=== PATIENT | female | born 1985 | race African-American/Black ===

== ENCOUNTER 2017-04-18 20:11 | Emergency (ER) | payer BC, MEDICAID, SELFPAY ==
[2017-04-18] MEDS ORDERED: Ibuprofen 800 MG TAB ONE (21:25)
== END 2017-04-18 21:29 | disposition home or self-care (01) ==
LOC: ERS 20:11
DX: K04.7 Periapical abscess without sinus (principal); F17.200 Nicotine dependence, unspecified, uncomplicated
CPT/HCPCS: 99406

== ENCOUNTER 2017-05-01 11:11 | Emergency (ER) | payer BC, MEDICAID ==
--- NOTE | 2017-05-01 15:21 | RAD ---
TWO VIEWS CHEST: Date: 05-01-17 Provided Clinical History: Cough. FINDINGS: Comparison 08-23-09. Cardiac and mediastinal silhouette is within normal limits. Lungs appear clear. No pleural fluid or p neumothorax apparent. IMPRESSION: No evidence for an acute cardiopulmonary process. POS: [facility]
== END 2017-05-01 15:15 | disposition home or self-care (01) ==
LOC: ERS 11:11
DX: J20.9 Acute bronchitis, unspecified (principal); F17.210 Nicotine dependence, cigarettes, uncomplicated
CPT/HCPCS: 71020; 99406

== ENCOUNTER 2017-07-07 01:29 | Emergency (ER) | payer MEDICAID ==
[2017-07-07] MEDS ORDERED: Ibuprofen 800 MG TAB ONE (01:58)
== END 2017-07-07 02:01 | disposition home or self-care (01) ==
LOC: ERS 01:29
DX: H66.91 Otitis media, unspecified, right ear (principal); F17.210 Nicotine dependence, cigarettes, uncomplicated
CPT/HCPCS: 99282

== ENCOUNTER 2017-07-20 20:39 | Emergency (ER) | payer MEDICAID, SELFPAY ==
[2017-07-20] MEDS ORDERED: Ketorolac Tromethamine 30 MG/ML VIAL ONE (21:20)
[2017-07-20] MEDS ORDERED: Clindamycin 150 MG CAP ONE (21:20)
== END 2017-07-20 21:26 | disposition home or self-care (01) ==
LOC: ERS 20:39
DX: K02.9 Dental caries, unspecified (principal); F17.210 Nicotine dependence, cigarettes, uncomplicated
CPT/HCPCS: 96372; J1885

== ENCOUNTER 2017-10-31 20:40 | Emergency (ER) | payer MEDICAID, SELFPAY ==
[2017-10-31 21:20] LABS: Pregnancy Test - Urine (BHCG) POSITIVE (Negative); Pregu Control Background? CLEAR/WHITE (CLR/WHITE); Pregu Control Bar Appear? YES (CONTROL BAR)
[2017-10-31 21:23] LABS: Bilirubin Negative (Negative); Blood, Urine Small (Negative); Clarity CLOUDY (Clear); Glucose, Urine (Dipstick) Negative (Negative); Leukocyte Negative (Negative); Nitrite Negative (Negative); Protein, Urine (Dipstick) Trace mg/dL (Neg-Trace); Specific Gravity, Urine 1.027 (1.002-1.036); Urobilinogen 0.2 mg/dL (0.2-1.0); pH, Urine 5.5 (5.0-9.0)
[2017-10-31 21:24] LABS: Specific Gravity 1.027 (1.002-1.036); Squamous Epithelial 21-50 HPF (0-3)
[2017-10-31 21:25] LABS: Pathc Cast-AUWi Flag 3.48 (0-2.49)
[2017-10-31 21:32] LABS: Bacteria/HPF 2+ HPF (None Seen)
[2017-10-31 21:33] LABS: Hyaline Casts/LPF NONE SEEN LPF (0-3 Hyaline)
[2017-11-01 22:15] LABS: Chlamydia by PCR Not Detected (NotDetected); GC by PCR Not Detected (NotDetected)
== END 2017-10-31 23:16 | disposition home or self-care (01) ==
LOC: ERS 20:40
DX: O99.611 Diseases of the digestive system complicating pregnancy, first trimester (principal); K59.00 Constipation, unspecified; O99.511 Diseases of the respiratory system complicating pregnancy, first trimester; J45.909 Unspecified asthma, uncomplicated; F17.210 Nicotine dependence, cigarettes, uncomplicated
CPT/HCPCS: 81003; 81015; 81025; 87480; 87491; 87510; 87591; 87660; 99284

== ENCOUNTER 2017-11-27 16:42 | Emergency (ER) | payer MEDICAID | END 2017-11-27 17:44 | disposition left against medical advice (07) | LOC: ERS 16:42 | DX: Z53.21 Procedure and treatment not carried out due to patient leaving prior to being seen by health care provider (principal) ==

== ENCOUNTER 2018-02-19 07:13 | Day surgery (SDC) | payer OTHER ==
[2018-02-19 08:16] VITALS: BP 113/55; TEMP 98.7; BMI 39.9
[2018-02-19] MEDS ORDERED: Acetaminophen 500 MG TAB PO SCH (09:00)
[2018-02-19] MEDS ORDERED: Sodium Chloride 0.9% 1,000 ML IV SCH (10:00)
--- NOTE | 2018-02-19 10:42 | PDOC.FPROB ---
FMR OB H&P: HPI - History of Present Illness Chief Complaint: pelvic cramps Indentification: @ 21.3w EGA by 1st T US History of Present Illness: this is a 32yo at 21.3weeks gestation dated by 1st t US presenting for eval of pelvic cramps. Pt reports last night she began to feel bilateral lower abdominal and pelvic cramping. Onset was a few hours after playing with and lifting her 5 year old daughter. Pain is crampy,8/10, non radiating. Pt fell asleep and woke in the morning the pain persisted but decreased to 4/10. Pt also went to bathroom last night and noticed a light pink color on toilet paper. Pt has never had a similar episode. Denies trauma. Endorses sexual activity 36 hours ago, good mvmt, no discharge or LOF or contractions. Primary Care Physician: Dr. Ferreira FMR OB H&P: Current - Care : 3 Para: 1011 Gestational age: 21.3 Dating Criteria: 1T US Course/Complications: vaginal yeast infection on 01/05/2018, s/p treatment - OB Labs Blood type: A RH: positive Antibody Screen: negative HIV: negative HepBsAg: negative Rubella: immune Gonorrhea: negative Chlamydia: negative FMR OB H&P: History - Past Medical History PMH: Asthma- controlled with inhaled steroid, last albuterol use was weeks ago - OB History OB History: #1: D&C #2: full term F, delivered via C section due to NRFHT - Surgical History Sx History: c section 2014 - Social History Social History: tobacco: 1/2 pack per day etoh: denies drugs: denies - Family History Family History: down syndrome: cousins FMR OB H&P: Medications - Current Home Medications: Medication Instructions Recorded Confirmed Type 21/Iron Fu/Folic Acid 1 tablet PO DAILY 02/19/18 02/19/18 History [ Complete Caplet] metroNIDAZOLE [Flagyl] 500 mg PO Q12HR 7 Days #14 tab 02/19/18 Rx Allergies/Adverse Reactions: Allergies Allergy/AdvReac Type Severity Reaction Status Date / Time No Known Allergies Allergy Unverified 02/19/18 08:17 FMR OB H&P: ROS - Review of Systems General: denies: fever/chills, recent trauma Eyes: denies: eye pain, vision changes ENT: denies: nasal congestion, rhinorrhea Cardiovascular: denies: chest pain, palpitation Respiratory: denies: cough, congestion, shortness of breath Gastrointestinal: reports: abdominal pain (per hpi). denies: nausea, vomiting, bright red blood, dark black tarry stools Genitourinary (Female): denies: incontinence, hematuria, polyuria, vaginal discharge Musculoskeletal: denies: pain, stiffness Neurologic: denies: syncope, seizures Integumentary: denies: rash, lesions Endocrine: denies: cold intolerance, heat intolerance Hematologic/Lymphatic: denies: prolonged or excessive bleeding Psychological: denies: depression, anxiety FMR OB H&P: Vital Signs - Maternal Vital signs: Vital Signs - First Documented Temp Pulse Resp BP Pulse Ox 98.7 F 79 18 113/55 L 100 02/19/18 08:04 02/19/18 08:04 02/19/18 08:04 02/19/18 08:04 02/19/18 08:04 - Heart Tones Baseline: 150 Variability: moderate FMR OB H&P: Physical Exam - Physical Exam General: NAD, awake, alert and oriented HEENT: normocephalic and atraumatic, EOMI, MMM, grossly normal vision Neck: supple Chest: non-tender to palpation Heart: RRR, normal S1/S2 General: CTAB, no respiratory distress Abdomen: gravid, non-tender Musculoskeletal: normal gait and station Skin: no rash, good tugor Lymphatic: no unusual bruising or bleeding, no purpura Psychiatric: intact recent and remote memory, good judgement and insight - Pelvic Exam Vulva: normal hair distribution, no masses, no lesions, no blood Cervix: no masses, no lesions, no blood FMR OB H&P: A/P - Problem List (1) Abdominal pain affecting Status: Acute Code(s): O26.899 - OTH RELATED CONDITIONS, UNSPECIFIED TRIMESTER; R10.9 - UNSPECIFIED ABDOMINAL PAIN Disposition: Abdominal pain secondary to pains of and/or musculoskeletal strain A- Pain is resolving spontaneously and hx is suspicious for normal pains of exacerbated by her activity/play with daughter. Minimal blood on hx. Steril spec showed no lesions vaginally or on cervix as well as no blood whatsoever. Abd US showed single intrauterine , cephalic, with normal FHT and anterior placenta not near cervix. No abnormalities. Possible minimal bleeding likely 2/2 sexual activity. P- VP3, GC&C -1L NS -tylenol -will discharge home and f/u with results. Attending Addendum - Attending Addendum Date/Time: 02/20/18 4600 I personally evaluated the patient and discussed the management with Dr. Weinstein on 02/19/18. I agree with the History, Examination, Assessment and Plan documented above with any addition or exceptions noted below. 32 y.o at 21.3 weeks EGA with lower abd pain and decreased FM. Exam and Labs normal except BV. will treat. UDS pos for Meth. [employer] [place] to abstinence. F/U at [facility]
[2018-02-19 10:43] LABS: Bilirubin Negative (Negative); Blood, Urine Small (Negative); Clarity CLEAR (Clear); Glucose, Urine (Dipstick) Negative (Negative); Leukocyte Negative (Negative); Nitrite Negative (Negative); Protein, Urine (Dipstick) Negative (Neg-Trace); Specific Gravity, Urine 1.011 (1.002-1.036); pH, Urine 7.5 (5.0-9.0)
[2018-02-19 10:45] LABS: Bacteria/HPF None Seen HPF (None Seen); Hyaline Casts/LPF 7-10 HYALINE CAST LPF (0-3 Hyaline); Pathc Cast-AUWi Flag 1.59 (0-2.49); Squamous Epithelial 0-3 HPF (0-3); WBC/HPF 0-3 HPF (0-3)
[2018-02-19 11:04] LABS: Medtox Reader # READER 1; THC/Cannabinoid Screen Not Detected (NotDetected)
[2018-02-19 11:05] LABS: Amphetamine Detected (NotDetected); Barbiturates Screen Not Detected (NotDetected); Benzodiazepine Screen Not Detected (NotDetected); Cocaine Metabolite Screen Not Detected (NotDetected); Medtox Control Line Valid? VALID (VALID); Methadone Not Detected (NotDetected); Methamphetamine Detected (NotDetected); Opiate Screen Not Detected (NotDetected); Oxycodone Screen Not Detected (NotDetected); Phencyclidine (PCP) Not Detected (NotDetected); Tricyclic Screen Not Detected (NotDetected)
[2018-02-20 22:09] LABS: Chlamydia trachomatis by NAA Negative (Negative)
== END 2018-02-19 12:36 | disposition home or self-care (01) ==
LOC: L&D/OP 07:13
PROVIDERS: ATTEND Family Medicine
DX: O26.892 Other specified pregnancy related conditions, second trimester (principal); R10.9 Unspecified abdominal pain; O99.332 Smoking (tobacco) complicating pregnancy, second trimester; F17.200 Nicotine dependence, unspecified, uncomplicated; Z3A.21 21 weeks gestation of pregnancy; Z79.899 Other long term (current) drug therapy
CPT/HCPCS: 76815; 80306; 81003; 81015; 87480; 87491; 87510; 87591; 87660; 96360; 99284

== ENCOUNTER 2018-04-29 22:16 | Day surgery (SDC) | payer OTHER ==
[2018-04-29 23:17] VITALS: BMI 43.6
--- NOTE | 2018-04-29 23:36 | PDOC.FPROB ---
FMR OB H&P: HPI - History of Present Illness Chief Complaint: Swelling in her feet History of Present Illness: This is a 32 yo at 31.2 wks by 1st trimester US who presents to L&D with a cc of swelling in her feet. She states that the swelling started earlier today when she was sitting on the couch. She states that she did not recognize it at first but her pointed it out. She states that her swelling is associated with some pain and pressure. She denies headache, changes in vision, SOB, LOF, vaginal discharge, or pain. She has had no history of Pre-eclampsia or consistently elevated pressures during this . Primary Care Physician: Dr. Ferreira FMR OB H&P: Current - Care : 3 Para: 1011 Gestational age: 31.2 Due date: 06/29/18 Dating Criteria: 1st trimester US - OB Labs Blood type: A RH: positive Antibody Screen: negative HIV: negative RPR: negative HepBsAg: negative Rubella: immune Urine drug screen: positive (Positive for Meth during this ) Gonorrhea: negative Chlamydia: negative GBS: unknown FMR OB H&P: History - Past Medical History PMH: Asthma, well controlled on inhaled steroid and PRN albuterol - OB History OB History: 1: D&C 2: Full term female, delivered via C section due to NRFHT FMR OB H&P: Medications - Current Home Medications: Medication Instructions Recorded Confirmed Type 21/Iron Fu/Folic Acid 1 tablet PO DAILY 02/19/18 02/19/18 History [ Complete Caplet] Albuterol Sulfate HFA (OR) 2 puff IH PRN PRN 04/29/18 04/29/18 History [Proventil Hfa (or)] Albuterol Sulfate [Albuterol 3 ml NEB Q6HR 04/29/18 04/29/18 History Sulfate Neb] Allergies/Adverse Reactions: Allergies Allergy/AdvReac Type Severity Reaction Status Date / Time No Known Allergies Allergy Verified 04/29/18 23:10 FMR OB H&P: ROS - Review of Systems General: denies: fever/chills, weight/appetite/sleep changes, fatigue Eyes: denies: eye pain, vision changes ENT: denies: nasal congestion, rhinorrhea, trouble with swallowing Cardiovascular: denies: chest pain, palpitation Respiratory: denies: cough, congestion, shortness of breath Gastrointestinal: denies: abdominal pain, indigestion Genitourinary (Female): denies: incontinence, dysuria, vaginal discharge, vaginal pain Musculoskeletal: reports: pain (stable low back pain), swelling (bilateral swelling with mild tenderness) Neurologic: denies: numbness, syncope Psychological: denies: depression, anxiety FMR OB H&P: Vital Signs - Maternal Vital signs: BP 119/57, HR 86 - Heart Tones Baseline: 130 Variability: moderate Acceleration: present Deceleration: absent FMR OB H&P: Physical Exam - Physical Exam General: NAD, awake, alert and oriented HEENT: normocephalic and atraumatic, PERRLA, MMM Neck: FROM, trachea midline Chest: non-tender to palpation Heart: RRR, normal S1/S2, no murmurs/rubs/gallops, other (+1 pitting edema to mid miranda bilaterally) General: CTAB, no respiratory distress, no wheezing Abdomen: soft, gravid, bowel sound present Musculoskeletal: normal gait and station, pulses present, FROM in all four extremities FMR OB H&P: A/P - Problem List (1) Third trimester Status: Acute Code(s): Z34.93 - ENCNTR FOR SUPRVSN OF NORMAL PREG, UNSP, THIRD TRIMESTER Disposition: This is a 32 yo at 31.2 wks by 1st trimester US B/L LE swelling -Likely 2/2 inferior vena cava pressure from fetus. Pt has had normal pressures throughout and current bp is 119/57. She has no symptoms of Pre- eclampsia. FHTs baseline 130s, moderate variability, accels present, no decels. Pt was instructed to keep feet elevated and wear compression stockings. Pt was given return precautions. Discussion: Date/Time: 04/29/18 2436 This H&P was discussed with Dr. Ferreira who agree with the above documentation and plan.
== END 2018-04-30 00:28 | disposition home or self-care (01) ==
LOC: ERS 22:16 → L&D/OP 22:37
PROVIDERS: ATTEND Family Medicine
DX: O99.89 Other specified diseases and conditions complicating pregnancy, childbirth and the puerperium (principal); M79.89 Other specified soft tissue disorders; O99.513 Diseases of the respiratory system complicating pregnancy, third trimester; J45.909 Unspecified asthma, uncomplicated; Z3A.31 31 weeks gestation of pregnancy; Z79.899 Other long term (current) drug therapy
CPT/HCPCS: 99282

== ENCOUNTER 2018-05-22 06:21 | Inpatient (IN) | payer OTHER ==
[2018-05-22 06:46] VITALS: BMI 41.1
--- NOTE | 2018-05-22 07:28 | PDOC.FPROB ---
FMR OB H&P: HPI - History of Present Illness Chief Complaint: dizziness and headache Indentification: per PNC charts but per patient History of Present Illness: The patient is a 33YO at 35.5 weeks c/w an 8.5 week sono who was brought to L&D via EMS complaining of sudden onset headache and dizziness that began early this AM. Per the patient, she woke up around 0300 and had to urinate a lot. While getting up and moving around she endorsed some dizziness and an associated 10/10 frontal headache. She cannot describe the pain but reports that it comes and goes and has some associated blurry vision as well. She denies any associated N/V, chest pain, focal weakness, or SOB. She says she feels hot but does not know if she has a fever. She denies any dysuria but does endorse some vaginal pressure during urination. Does not know if she has had dysuria because she has been voiding in the dark. Denies any vaginal discharge or bleeding or contractions. Endorses regular movement. Denies any drug use at all during despite a UDS + for amphetamines in February. States that was due to her living with meth users and she now lives somewhere else. Primary Care Physician: MAXI Ferreira FMR OB H&P: Current - Care : 3 Para: 1011 Gestational age: 35.5 weeks Due date: 06/29/18 Dating Criteria: 8.5 week sono Course/Complications: GDM diagnosed yesterday in clinic and started on glyburide. - OB Labs Blood type: A RH: positive Antibody Screen: negative HIV: negative RPR: negative HepBsAg: negative Rubella: immune Urine drug screen: negative (on 05/13/18) Gonorrhea: negative Chlamydia: negative Pap Smear: NILM in August of 2017 1 hour gtt: 264 GBS: unknown H&H: 10.3/31 on 05/13/18 Platelets: 399 on 05/13/18 Additional labs: Varicella immune w/ IgG of 332 - First Trimester Ultrasound First trimester: live sIUP w/ new PATTI based on sono of 06/29/2018 - Anatomy Survey Anatomy survey: Female fetus w/ no anamolies detected. No cervical funneling or shortening noted. FMR OB H&P: History - Past Medical History PMH: asthma, carpal tunnel syndrome, obesity - OB History OB History: Uncontrolled A2GDM diagnosed on 05/21/18 h/o SAB in 2014 h/o C/S @ 39 weeks in 2012 2/2 failure to progress and nonreassuring FHTs - SURVEY MANAGER History SURVEY MANAGER History: no h/o abnormal pap; NILM in 4 of 2017 - Surgical History Sx History: D&C s/p SAB in 2004 C/S in 2012 - Social History Social History: + for tobacco use and h/o + UDS in February for amphetamines; most recent UDS in clinic on 05/13/18 negative No EtOH use - Family History Family History: non-contributory FMR OB H&P: Medications - Current Home Medications: Medication Instructions Recorded Confirmed Type 21/Iron Fu/Folic Acid 1 tablet PO DAILY 02/19/18 05/22/18 History [ Complete Caplet] Albuterol Sulfate HFA (OR) 2 puff IH PRN PRN 04/29/18 05/22/18 History [Proventil Hfa (or)] Albuterol Sulfate [Albuterol 3 ml NEB Q6HR 04/29/18 05/22/18 History Sulfate Neb] glyBURIDE [Glyburide] 2.5 mg PO BID 05/22/18 05/22/18 History Allergies/Adverse Reactions: Allergies Allergy/AdvReac Type Severity Reaction Status Date / Time No Known Allergies Allergy Verified 04/29/18 23:10 FMR OB H&P: ROS - Review of Systems General: denies: fever/chills Eyes: reports: vision changes, double vision Cardiovascular: denies: chest pain Respiratory: denies: shortness of breath Gastrointestinal: denies: abdominal pain, nausea, vomiting Genitourinary (Female): reports: vaginal pressure. denies: dysuria, vaginal discharge, vaginal pain, vaginal bleeding, contractions Musculoskeletal: denies: decrease range of motion Neurologic: reports: headache. denies: numbness, syncope, weakness Endocrine: reports: polyuria FMR OB H&P: Vital Signs - Maternal Vital signs: BP: 130/75 HR: 100 RR: 18 Temp: 98.7F - Heart Tones Baseline: 160 Variability: moderate [place] contractions every: no contractions seen FMR OB H&P: Physical Exam - Physical Exam General: awake, alert and oriented, other (moderate distress and anxious appearing) HEENT: normocephalic and atraumatic, EOMI, MMM, conjunctiva clear, no scleral icterus Neck: supple Heart: RRR, normal S1/S2, no murmurs/rubs/gallops, other General: CTAB, no respiratory distress, good air movement, no wheezing, no retractions Abdomen: soft, gravid, bowel sound present Musculoskeletal: normal gait and station, pulses present, FROM in all four extremities Neurological: cranial nerves II through XII intact, sensation to pain,touch and proprioception grossly normal, strength +5, no clonus, no tremor, no focal deficit Skin: no rash, good tugor, capillary refill <2 seconds Lymphatic: no unusual bruising or bleeding, no purpura Psychiatric: intact recent and remote memory FMR OB H&P: Results - Labs Lab results: Laboratory Results - last 24 hr 05/22/18 07:05 POC Glucose 310 H FMR OB H&P: A/P - Problem List (1) Headache Current Visit: Yes Status: Acute Code(s): R51 - HEADACHE (2) Dizziness Current Visit: Yes Status: Acute Code(s): R42 - DIZZINESS AND GIDDINESS (3) GDM (gestational diabetes mellitus) Current Visit: Yes Status: Acute Code(s): O24.419 - GESTATIONAL DIABETES MELLITUS IN , UNSP CONTROL Qualifiers: Gestational diabetes mellitus control: oral hypoglycemic-controlled Trimester: third trimester Qualified Code(s): O24.415 - Gestational diabetes mellitus in , controlled by oral hypoglycemic drugs (4) History of section, low transverse Current Visit: Yes Status: Chronic Code(s): Z98.891 - HISTORY OF UTERINE SCAR FROM PREVIOUS SURGERY (5) History of spontaneous , currently Current Visit: Yes Status: Chronic Code(s): O09.299 - SUPRVSN OF PREG W POOR REPRODCTV OR OBSTET HISTORY, UNSP TRI (6) History of dilatation and curettage Current Visit: Yes Status: Chronic Code(s): Z98.890 - OTHER SPECIFIED POSTPROCEDURAL STATES (7) Hyperglycemia during Current Visit: Yes Status: Acute Code(s): O99.810 - ABNORMAL GLUCOSE COMPLICATING (8) History of drug abuse Current Visit: Yes Status: Chronic Code(s): Z87.898 - PERSONAL HISTORY OF OTHER SPECIFIED CONDITIONS (9) Tobacco use Current Visit: Yes Status: Chronic Code(s): Z72.0 - TOBACCO USE (10) Obesity Current Visit: Yes Status: Chronic Code(s): E66.9 - OBESITY, UNSPECIFIED (11) Carpal tunnel syndrome during Current Visit: Yes Status: Chronic Code(s): O26.899 - OTH RELATED CONDITIONS, UNSPECIFIED TRIMESTER; G56.00 - CARPAL TUNNEL SYNDROME, UNSPECIFIED UPPER LIMB (12) tachycardia Current Visit: Yes Status: Acute Code(s): [id number] - Disposition: 33YO at 35.5 weeks who presented to L&D via EMS with a CC of dizziness and a severe headache that began at approximately 0300 today. Headache: - Patient endorses a 10/10 NAGEL that she reports as the worst in her life that started at 0300 today. - BP steadily increasing since arrival with most recent up to 149/75. - CBC, CMP, and Urine protein & creatinine ordered. - Will give 1g PO tylenol and 1L of LR as well. - Will continue to monitor pain and BPs closely and consider a head CT as well if labwork not significant for Pre-e and/or Headache does not improve with conservative measures. GDMA2: - Per patient just diagnosed yesterday and started on glyburide 2.5mg QHS. BG at presentation significantly elevated at 310. - Will give 5 units of insulin now and recheck BG in ~4 hours to see full effect. - Will get a UA as well to r/o any infection in setting of hyperglycemia. - Will keep NPO for now in anticipation of possible need for delivery. tachycardia: - baseline FHR in the 160s since arrival with moderate variability. - Will give mother 1L of LR and 1g of tylenol for her pain and see if this helps improve FHR. - If no improvement will consider possible need for delivery. Will also consider getting a BPP. - OF note, patient has h/o C/S but desired a TOLAC per AWA in records in February. sIUP @ 35.5 weeks: - Aware. - FHTs as described above. - Will continue to monitor closely. Tobacco use: - Will encourage cessation. h/o + UDS for amphetamine: - Aware, repeat UDS pending. asthma: - Aware, will order albuterol PRN. Patient states well-controlled and only uses inhaler and nebulizer PRN. h/o BV in : - Aware, s/p treatment. h/o yeast vaginitis in : - Aware, s/p treatment. Obesity: - Aware, will encourage lifestyle changes. Carpal tunnel syndrome: - Aware, will ensure patient has splints to wear QHS. Dispo: Will admit for close monitoring overnight and in order to get better control of BG levels & possible plan for early delivery pending lab & imaging results. Discussion: Date/Time: 05/22/18727 This H&P was discussed with general internal medicine doctor and I agree with the above HPI/ROS/PE and I ( Leon Stock DO) would like to add further assessment below: 33YO at 35.5wga requiring admission for ANGEL, GDM, Pre-E R/O. 1. Headache: - Unknown cause, but considering Pre-E, SAH, Migraine, Tension ANGEL, dehydration. Will give ANGEL medications/IVF and if no improvement will investigate further. - No focal neuro deficits and will continue to monitor. consider CT scan. - Did have elevated BP suggesting Pre-E and will order lab w/u. Give LR bolus and plan for delivery if indicated. 2. GDMA2: - Diagnosed yesterday and took one dose of Glyburide last night. BG uncontrolled ; will order 5u insulin and continue to monitor. She will likely need to be placed on insulin if discharged. Also suspect infant to be LGA. 3. tachycardia: - baseline FHR in the 160s since arrival with moderate variability. - Will give mother 1L of LR and continue monitoring. consider BPP. 4. sIUP @ 35.5 weeks: - Hx/o C/S x1 but pt desires TOLAC, which may not be recommended if we need to induce labor for Pre-E. - Will continue to monitor closely. 5. Tobacco Use during : - Will encourage cessation. 6. H/o + UDS for amphetamine: - During 1st trimester and denies additional use. Repeat UDS. 7. Asthma: - Albuterol PRN. No acute wheezing or respiratory distress. 8. H/o BV in : - S/p treatment. No acute issues. 9. H/o yeast vaginitis in : - S/p treatment, no acute issues. 10. Obesity: - Medical Affairs Director. Addendum - Attending - Attending Attestation Date/Time: 05/22/18 9980 I personally evaluated the patient and discussed the management with Dr. Castano at time of admission. See separate note. I agree with the History, Examination, Assessment and Plan documented above with any addition or exceptions noted below.
[2018-05-22] MEDS ORDERED: Lactated Ringer's 1,000 ML IV SCH ×2 (07:45→12:00)
[2018-05-22] MEDS ORDERED: Acetaminophen 500 MG TAB PO SCH (07:45)
[2018-05-22 07:56] LABS: #Eosinphils 0.1 thou/uL (0.0-0.7); #Lymphocytes 2.6 thou/uL (1.20-3.40); #Monocytes 0.9 thou/uL (0.11-0.59); #Neutrophils 6.3 thou/uL (1.40-6.50); %Basophils 0.3 % (0.0-1.0); %Eosinophils 1.5 % (0.0-10.0); %Lymphocytes 26.1 % (21.0-51.0); %Monocytes 9.1 % (0.0-10.0); %Neutrophils 63.2 % (42.0-75.0); Hemoglobin 10.5 g/dL (12.0-16.0); Mean Corpuscular HGB CONC 32.9 g/dL (32.0-36.0); Mean Corpuscular Hemoglobin 29.2 pg (27.0-31.0); Mean Corpuscular Volume 88.9 fL (78.0-98.0); Mean Platelet Volume 7.4 fL (7.4-10.4); Platelet Count 316 thou/uL (130-400); RBC Distribution Width 12.2 % (11.5-14.5); Red Blood Cell (RBC) Count 3.58 mill/uL (4.20-5.40)
[2018-05-22] MEDS ORDERED: Insulin Regular 300 UNITS/3 ML VIAL SC SCH (08:00)
[2018-05-22 08:30] LABS: ALT (SGPT) 12 U/L (8-55); AST (SGOT) 14 U/L (5-34); Albumin 3.3 g/dL (3.5-5.0); Alkaline Phosphatase 144 U/L (40-150); Anion Gap 10 mmol/L (10-20); BUN (Urea Nitrogen) 8 mg/dL (7.0-18.7); Bilirubin, Total 0.3 mg/dL (0.2-1.2); Calc. Creatinine Clearance 188 mL/min (70-130); Carbon Dioxide 22 mmol/L (22-29); Chloride 105 mmol/L (98-107); Estimated GFR-MDRD Greater than 90; Globulin 3.6 g/dL (2.4-3.5); Glucose 244 mg/dL (70-105); Potassium 3.9 mmol/L (3.5-5.1); Protein, Total 6.9 g/dL (6.0-8.3); Sodium 133 mmol/L (136-145)
[2018-05-22 08:30] LABS: Bilirubin Negative (Negative); Blood, Urine Small (Negative); Clarity CLEAR (Clear); Glucose, Urine (Dipstick) >=1000 mg/dL (Negative); Leukocyte Negative (Negative); Nitrite Negative (Negative); Protein, Urine (Dipstick) Negative (Neg-Trace); Specific Gravity, Urine 1.016 (1.002-1.036); Urobilinogen 0.2 mg/dL (0.2-1.0)
[2018-05-22 08:35] LABS: Bacteria/HPF Rare-Few HPF (None Seen); Hyaline Casts/LPF 0-3 HYALINE CAST LPF (0-3 Hyaline); Pathc Cast-AUWi Flag 0.29 (0-2.49); Squamous Epithelial 0-3 HPF (0-3); WBC/HPF 0-3 HPF (0-3)
[2018-05-22 08:38] LABS: Urine Culture Reflex No No
[2018-05-22 08:40] LABS: Amphetamine Not Detected (NotDetected); Barbiturates Screen Not Detected (NotDetected); Benzodiazepine Screen Not Detected (NotDetected); Cocaine Metabolite Screen Not Detected (NotDetected); Medtox Control Line Valid? VALID (VALID); Medtox Reader # READER 1; Methadone Not Detected (NotDetected); Methamphetamine Not Detected (NotDetected); Opiate Screen Not Detected (NotDetected); Oxycodone Screen Not Detected (NotDetected); Phencyclidine (PCP) Not Detected (NotDetected); THC/Cannabinoid Screen Not Detected (NotDetected); Tricyclic Screen Not Detected (NotDetected)
--- NOTE | 2018-05-22 09:02 | PDOC.EVN ---
Event Note - Event Note Event Note: Date/Time: 05/22/18 0853 I personally evaluated the patient and discussed the management with Dr. Monroe and Montrell on L&D. Theire written H&P is pending. I agree with the History, Examination, Assessment and Plan as discussed with any addition or exceptions noted below. 1. Patient has a new headache that has a differential dx including tension ANGEL, Preeclampsia, migraine, and Subarachnoid hemorrhage. We are giving fluids, tylnol and arranging a CT scan of the head. 2. She has one elevated BP since arrival, the others are normal. We will be monitoring for repeat episodes of elevated BP that would confirm the diagnosis of preeclampsia with severe features. We are arranging [facility] laboratory workup. 3. GDM. Recently diagnosed. Her blood glucose is over 300. Regular Insulin will be give with glucose checks q 4 hours. 4. 33 yo at 35w5d by 8wk LMP. Complicated by obesity, GDM, amphetamine use. Clinic records requested for further review. 5. tachycardia at in the 160s without deceleration and with moderate variability. We will give IV fluids and insulin and continue to monitor. Will arrange delivery plan depending on response to therapy.
[2018-05-22 09:23] LABS: Creatinine, Urine 41.4 mg/dL (47-110)
[2018-05-22] MEDS ORDERED: Ondansetron PF 4 MG/2 ML Vial IVP PRN (11:23)
[2018-05-22] MEDS ORDERED: Promethazine HCl 25 MG/ML VIAL IM PRN (11:23)
[2018-05-22] MEDS ORDERED: Dextrose 50% Abboject 50 ML SYRINGE SLOW IVP PRN (11:50)
[2018-05-22] MEDS ORDERED: Dextrose 5% in Water 1,000 ML IV PRN (11:50)
[2018-05-22] MEDS ORDERED: diphenhydrAMINE 50 MG/ML VIAL ONE (11:59)
[2018-05-22 12:08] LABS: Syphilis Antibody Nonreactive (Nonreactive); Syphilis Antibody Index 0.03 S/CO (<1.00 Non-Reactive)
[2018-05-22 12:09] LABS: HBSAg Index 0.33 S/CO (0-0.99); Hep B Surf Ag Non-Reactive S/CO (NonReactive)
[2018-05-22] MEDS: Metoclopramide HCl 10 MG/2 ML VIAL IVP SCH ×2 (12:15→14:02)
[2018-05-22] MEDS ORDERED: diphenhydrAMINE 12.5 MG in Sodium Chloride 0.9% 50 ML IVPB SCH (12:30)
[2018-05-22] MEDS: diphenhydrAMINE 50 MG/ML VIAL IVP SCH ×2 (13:00→15:18)
[2018-05-22] MEDS ORDERED: diphenhydrAMINE 50 MG/ML VIAL IVP SCH ×2 (13:30→15:15)
--- NOTE | 2018-05-22 13:34 | ULT ---
LIMITED OB ULTRASOUND BIOPHYSICAL PROFILE: PROVIDED CLINICAL HISTORY: Size and dates. FINDINGS: A single live intrauterine gestation is documented in vertex presentation with heart rate of 150 b.p. m. documented. Cervical length is 4.4 cm. The placenta is anteriorly located without evidence for p revia. Estimated weight 3,107 +/- 460 gm. Estimated gestational age based on today's study 36 weeks 5 days. The amniotic fluid index is 7.2. BIOMETRY: BPD 9.06 cm, 36 weeks 5 days Head circumference 32.34 cm, 36 weeks 4 days Abdominal circumference 33.79 cm, 37 weeks 5 days Femur length 7.03 cm, 36 weeks 0 days BIOPHYSICAL PROFILE: tone: 2/2. breathing movements: 0/2. movements: 2/2. Amniotic fluid: 2/2. Total: 6/8. IMPRESSION: 1. Single live intrauterine gestation 36 weeks 5 days by ultrasound. 2. Low normal amniotic fluid index. 3. Biophysical profile score 6/8. POS: [facility]
--- NOTE | 2018-05-22 13:46 | CT ---
CT HEAD NONCONTRAST: CLINICALLY INDICATIONS: Headache. FINDINGS: The ventricular system is within normal limits in size. No mass effect, midline shift, or intracrani al hemorrhage is visualized. The visualized paranasal sinuses, mastoid air cells, and middle ear cav ities are patent. IMPRESSION: There are no acute intracranial abnormalities. If symptoms of headache persist, recommend followup with pre and post contrast brain MRI for a more d efinitive evaluation. POS: [facility]
[2018-05-22] MEDS: Acetaminophen 325 MG TAB PO PRN ×2 (13:48→21:31)
[2018-05-22] MEDS ORDERED: Metoclopramide HCl 10 MG/2 ML VIAL IVP SCH ×2 (14:00→14:30)
[2018-05-22] MEDS ORDERED: Dextrose 5%-Lactated Ringers 1,000 ML IV SCH (14:45)
[2018-05-22] MEDS ORDERED: PROVENTIL INHALER 6.7 G (200 INHALATIONS) INH PRN (17:02)
--- NOTE | 2018-05-22 17:15 | PDOC.EVN ---
Event Note - Event Note Event Note: 33YO at 35.5 weeks who presented to L&D via EMS with a CC of dizziness and a severe headache that began at approximately 0300 today. Headache: - Highly suspect new onset migraine after consulting with laborist, Dr. Moore and gathering additional history now that patient's pain has improved. - Patient endorsed a 10/10 ANGEL that she reports as the worst in her life that started at 0300 today. - s/p 25mg IV benadryl and 30mg IV reglan with moderate improvement. Reports that ANGEL is exacerbated with movement and endorses associated photophobia and phonophobia as well. Denies any h/o migraines or regular HAs previously. - Only 2 BPs since admission just over 140 systolic a ~ 0800 & 0930. Urine protein:Cr JUST over 0.3 at 0.31. CBC and CMP unremarkable. - Head CT negative for any acute IC findings but read recommended an MRI w/ and w/o contrast if ANGEL does not improve. Will consider if ANGEL does not markedly improve after finishing ANGEL protocol. Will give 25mg more of benadryl 1 hour after first dose and one final dose of 10mg of reglan. - Will continue to monitor pain and BPs closely. GDMA2: - Per patient just diagnosed yesterday and started on glyburide 2.5mg QHS. BG at presentation significantly elevated at 310. Patient was given 5 units Insulin and BG has gradually decreased over the course of the day and most recently down to 70. - Will switch patient to D5/LR @ 125mL/hr and continue BG checks Q1Hr until consistently between 100-150 range. - Will start on CC diet and mild SSI and change BG checks to ACHS once sugars have stabilized. - Will educate extensively on diabetes prior to d/c and ensure patient has close f/u with PCP. tachycardia: - Resolved. - baseline FHR in the 160s on arrival with moderate variability. Baseline decreased into the 140s after giving patient IV meds for ANGEL and IVFs. - BPP 6/8, lost points for no respirations. EFW 3107g @ 84th percentile by Hadlock. AVRIL 7.2cm. Fetus in vertex position with anterior placenta and cervical length of just over 4cm. sIUP @ 35.5 weeks: - Aware. - status as described above. - Will continue to monitor fetus closely while on L&D. Tobacco use: - Will encourage cessation. h/o + UDS for amphetamine: - Aware, UDS negative on admission. asthma: - Aware, will continue albuterol PRN. Patient states well-controlled and only uses inhaler and nebulizer PRN. h/o BV in : - Aware, s/p treatment. h/o yeast vaginitis in : - Aware, s/p treatment. Obesity: - Aware, will encourage lifestyle changes. Carpal tunnel syndrome: - Aware. DVT PPx: SCDs GI PPx: none Abx: none IVFs: D5/LR @ 125mL/hr Dispo: Will admit to [facility] women's floor once BG levels have stablilized for close monitoring overnight. Anticipate possible d/c tomorrow if BG remains well controlled and ensure close f/u w/ PCP on discharge. Addendum - Attending - Attending Attestation Date/Time: 05/22/18 8664 I personally evaluated the patient and discussed the management with Dr. Nelson I agree with the History, Examination, Assessment and Plan documented above with any addition or exceptions noted below. Blood pressures have not met criteria for pre-eclampsia. Will continue to monitor. In light of her current condition, I think she is likely to need delivery prior to 37 weeks, so we will order steroid course.
[2018-05-22] MEDS ORDERED: Albuterol Sulfate 1.25 MG/3 ML NEB NEB SCH (20:30)
--- NOTE | 2018-05-23 00:58 | CON ---
DATE OF CONSULTATION: 05/22/2018 PRIMARY PROVIDER: [facility]. REFERRING PHYSICIAN: Bennie Hartley MD. CHIEF COMPLAINT: Elevated blood pressures and headaches. HISTORY OF PRESENT ILLNESS: The patient is a 33-year-old female who presented to the emergency room after waking up with the worst headache of her life. The patient has an intrauterine at 35 weeks and 5 days, complicated by gestational diabetes, uncontrolled. During her evaluation, a CT scan of the brain was performed and was negative for any acute changes. Blood pressures were noted to have a few elevations, otherwise prompting a PIH workup. Preeclamptic labs ordered by the primary team were significant for blood sugar at 310 and protein to creatinine ratio of 0.31 and a negative urine drug screen. The patient's blood pressures have primarily remained in the normal range, in the 120s 130s over 60s to 70s, but has had some isolated mild range pressures on 3 occasions in the 140 systolic over 70s diastolic. On my initial evaluation with the patient, the patient reported that her headache was pulsatile with sense of the light and sound. It was frontal and behind her eyes. The patient denied any history of migraine or other headache such as this one. The patient denies fever, any recent illness or fall, chest pain or shortness of breath, nausea, vomiting. The patient has had some diarrhea with a history of constipation. Denies any new rashes, hip problems, knee problems or muscle weakness. Denies vaginal bleeding or leakage of fluid. Denies urinary urgency or frequency. The patient does have a history of asthma and reports that she uses albuterol inhaler about twice a week and more often when she is sick. PAST MEDICAL HISTORY: 1. Gestational diabetes. 2. Asthma. 3. Obesity. PAST SURGICAL HISTORY: One prior . ALLERGIES: NO KNOWN DRUG ALLERGIES. MEDICATIONS: 1. Glyburide 2.5 mg p.o. b.i.d. 2. Albuterol nebs p.r.n. 3. Albuterol inhaler that she takes about twice a week. 4. vitamin. OBSTETRIC LABORATORY: Blood type is A positive. Antibody screen is negative. HIV is negative. RPR is negative. Hepatitis B surface antigen is negative. She is rubella immune. GC and chlamydia negative. Her GBS is unknown. REVIEW OF SYSTEMS: Per HPI. PHYSICAL EXAMINATION: VITAL SIGNS: Blood pressure most recently 123/60, heart rate of 93, respiratory rate 28, temperature 98.7, saturating 92% on room air. GENERAL: She appears to be in no acute distress. She is alert, oriented, cooperative, and pleasant to interact with. HEAD: Normocephalic and atraumatic. LUNGS: Clear. No wheezing, but has some diminished breath sounds. EXTREMITIES: Nontender, nonedematous. ABDOMEN: Soft, gravid, and nontender. : Exam has been deferred. HEART: heart tracing shows a baseline in the 150s with moderate long-term variability. Positive accelerations. No decelerations. Tocometer is quiet. LABORATORY DATA: Most recent blood sugar is 132, platelets 316,000, hemoglobin is 10.5, hematocrit 31.8, creatinine 0.73, AST 14, ALT 12, protein negative on dip with greater than a 1000 glucose, negative ketones. ASSESSMENT AND PLAN: The patient is a 33-year-old female with a past medical history significant for asthma, uncontrolled gestational diabetes, recently placed on glyburide 2.5 mg twice a day, which she started yesterday and had some elevations in blood pressure during this hospitalization and a severe headache with no evidence of acute changes on a CT scan. The patient was treated empirically for migraine with a course of Reglan and Benadryl for which she had a good response and now has a headache that is much more tolerated than she had before and has been without any pain medication. She is receiving 1 g of Tylenol now to assist with her headache. The patient has decreased saturations at this time and I have ordered an albuterol neb nebulized treatment. These mild elevated blood pressures are by 8 hours. At this time, I would continue her PIH workup with a 24 hour urine protein collection and continue in-house blood pressure monitoring during that time. Should she rule in for preeclampsia without severe features, we would continue expectant management until 37 weeks. The patient does not have any evidence of an excited neurologic system per DTRs and has responded quite nicely with the regimen for migraine headache. Given her decreased saturations, I have called the internet security specialist myself to give him that report and asked him to follow up on her nebulized treatments, which she has agreed to do. Job ID: [id number]
[2018-05-23] MEDS: HumaLOG 300 UNITS/3 ML VIAL SC PRN ×5 (01:29→19:34)
[2018-05-23] MEDS: Acetaminophen 325 MG TAB PO PRN (05:52)
[2018-05-23] MEDS ORDERED: Acetaminophen 325 MG TAB PO PRN (06:16)
--- NOTE | 2018-05-23 06:20 | PDOC.OBAPN ---
FMR OB AP PN: Sub - Interval History Hospital Day: 2 Chief Complaint: Headache and dizziness Indentification: Interval History: Patient monitored closely overnight. BPs WNLs but had hyperglycemia. FMR OB AP PN: Obj - Maternal Vital signs: BP: 133/73 HR: 105 RR: 28 Tmax: 98.7F Pox: 96% on RA Wt: 108 kg (vitals charted @ 0430) - Heart Tones Baseline: 155 (@ ~23:20 on 05/22/18) Variability: moderate Acceleration: present [place] contractions every: No contractions noted. FMR OB AP PN: Exam - Physical Exam General: NAD, awake, alert and oriented HEENT: normocephalic and atraumatic, MMM, grossly normal vision, grossly normal hearing Neck: supple, FROM Heart: RRR (not tachycardic at time of exam), normal S1/S2, pulses present, no edema General: CTAB, no respiratory distress, good air movement, no rales/rhonchi, no wheezing Abdomen: gravid, non-tender, bowel sound present Musculoskeletal: FROM in all four extremities Neurological: cranial nerves II through XII intact, strength +5, no focal deficit Skin: no rash, good tugor Lymphatic: no unusual bruising or bleeding, no purpura Psychiatric: intact recent and remote memory, good judgement and insight, normal mood and affect - Pelvic Exam SVE: closed/thick/high on 05/22/18 FMR OB AP PN: Data - Labs Lab results: Laboratory Results - last 24 hr 05/22/18 05/22/18 05/22/18 07:05 07:38 07:38 WBC 10.0 RBC 3.58 L Hgb 10.5 L Hct 31.8 L MCV 88.9 MCH 29.2 MCHC 32.9 RDW 12.2 Plt Count 316 MPV 7.4 Neutrophils % 63.2 Lymphocytes % 26.1 Monocytes % 9.1 Eosinophils % 1.5 Basophils % 0.3 Neutrophils # 6.3 Lymphocytes # 2.6 Monocytes # 0.9 H Eosinophils # 0.1 Basophils # 0.0 Sodium 133 L Potassium 3.9 Chloride 105 Carbon Dioxide 22 Anion Gap 10 BUN 8 Creatinine 0.73 Estimated GFR (MDRD) Greater than 90 Glucose 244 H POC Glucose 310 H Calcium 10.0 Total Bilirubin 0.3 AST 14 ALT 12 Alkaline Phosphatase 144 Serum Total Protein 6.9 Albumin 3.3 L Globulin 3.6 H Albumin/Globulin Ratio 0.9 L Urine Color Urine Clarity Urine pH Ur Specific [place] Urine Protein Urine Glucose (UA) Urine Ketones Urine Blood Urine Nitrite Urine Bilirubin Urine Urobilinogen Ur Leukocyte Esterase Urine RBC Urine WBC Ur Squamous Epith Cells Urine Bacteria Hyaline Casts Urine Culture Reflexed U Random Total Protein Urine Creatinine Urine Opiates Screen Ur Oxycodone Screen Urine Methadone Screen Ur Propoxyphene Screen Ur Barbiturates Screen Ur Tricyclics Screen Ur Phencyclidine Scrn Ur Amphetamines Screen U Methamphetamines Scrn U Benzodiazepines Scrn U Cocaine Metab Screen U Cannabinoids Screen Drug Screen Comment Syphilis IgG/IgM Ab Hep Bs Antigen Blood Type Blood Bank Comment 05/22/18 05/22/18 05/22/18 07:38 07:38 07:38 WBC RBC Hgb Hct MCV MCH MCHC RDW Plt Count MPV Neutrophils % Lymphocytes % Monocytes % Eosinophils % Basophils % Neutrophils # Lymphocytes # Monocytes # Eosinophils # Basophils # Sodium Potassium Chloride Carbon Dioxide Anion Gap BUN Creatinine Estimated GFR (MDRD) Glucose POC Glucose Calcium Total Bilirubin AST ALT Alkaline Phosphatase Serum Total Protein Albumin Globulin Albumin/Globulin Ratio Urine Color Urine Clarity Urine pH Ur Specific [place] Urine Protein Urine Glucose (UA) Urine Ketones Urine Blood Urine Nitrite Urine Bilirubin Urine Urobilinogen Ur Leukocyte Esterase Urine RBC Urine WBC Ur Squamous Epith Cells Urine Bacteria Hyaline Casts Urine Culture Reflexed U Random Total Protein Urine Creatinine Urine Opiates Screen Ur Oxycodone Screen Urine Methadone Screen Ur Propoxyphene Screen Ur Barbiturates Screen Ur Tricyclics Screen Ur Phencyclidine Scrn Ur Amphetamines Screen U Methamphetamines Scrn U Benzodiazepines Scrn U Cocaine Metab Screen U Cannabinoids Screen Drug Screen Comment Syphilis IgG/IgM Ab Nonreactive Hep Bs Antigen Non-Reactive Blood Type A POSITIVE Blood Bank Comment See comment: 05/22/18 05/22/18 05/22/18 08:06 08:06 08:06 WBC RBC Hgb Hct MCV MCH MCHC RDW Plt Count MPV Neutrophils % Lymphocytes % Monocytes % Eosinophils % Basophils % Neutrophils # Lymphocytes # Monocytes # Eosinophils # Basophils # Sodium Potassium Chloride Carbon Dioxide Anion Gap BUN Creatinine Estimated GFR (MDRD) Glucose POC Glucose Calcium Total Bilirubin AST ALT Alkaline Phosphatase Serum Total Protein Albumin Globulin Albumin/Globulin Ratio Urine Color YELLOW Urine Clarity CLEAR Urine pH 7.0 Ur Specific [place] 1.016 Urine Protein Negative Urine Glucose (UA) >=1000 H Urine Ketones Negative Urine Blood Small H Urine Nitrite Negative Urine Bilirubin Negative Urine Urobilinogen 0.2 Ur Leukocyte Esterase Negative Urine RBC 4-6 Urine WBC 0-3 Ur Squamous Epith Cells 0-3 Urine Bacteria Rare-Few Hyaline Casts 0-3 HYALINE CAST Urine Culture Reflexed No U Random Total Protein 13 Urine Creatinine 41.40 L Urine Opiates Screen Not Detected Ur Oxycodone Screen Not Detected Urine Methadone Screen Not Detected Ur Propoxyphene Screen Not Detected Ur Barbiturates Screen Not Detected Ur Tricyclics Screen Not Detected Ur Phencyclidine Scrn Not Detected Ur Amphetamines Screen Not Detected U Methamphetamines Scrn Not Detected U Benzodiazepines Scrn Not Detected U Cocaine Metab Screen Not Detected U Cannabinoids Screen Not Detected Drug Screen Comment Syphilis IgG/IgM Ab Hep Bs Antigen Blood Type Blood Bank Comment 05/22/18 05/22/18 05/22/18 12:27 14:19 15:30 WBC RBC Hgb Hct MCV MCH MCHC RDW Plt Count MPV Neutrophils % Lymphocytes % Monocytes % Eosinophils % Basophils % Neutrophils # Lymphocytes # Monocytes # Eosinophils # Basophils # Sodium Potassium Chloride Carbon Dioxide Anion Gap BUN Creatinine Estimated GFR (MDRD) Glucose POC Glucose 103 71 117 H Calcium Total Bilirubin AST ALT Alkaline Phosphatase Serum Total Protein Albumin Globulin Albumin/Globulin Ratio Urine Color Urine Clarity Urine pH Ur Specific [place] Urine Protein Urine Glucose (UA) Urine Ketones Urine Blood Urine Nitrite Urine Bilirubin Urine Urobilinogen Ur Leukocyte Esterase Urine RBC Urine WBC Ur Squamous Epith Cells Urine Bacteria Hyaline Casts Urine Culture Reflexed U Random Total Protein Urine Creatinine Urine Opiates Screen Ur Oxycodone Screen Urine Methadone Screen Ur Propoxyphene Screen Ur Barbiturates Screen Ur Tricyclics Screen Ur Phencyclidine Scrn Ur Amphetamines Screen U Methamphetamines Scrn U Benzodiazepines Scrn U Cocaine Metab Screen U Cannabinoids Screen Drug Screen Comment Syphilis IgG/IgM Ab Hep Bs Antigen Blood Type Blood Bank Comment 05/22/18 05/22/18 05/22/18 16:39 18:24 21:01 WBC RBC Hgb Hct MCV MCH MCHC RDW Plt Count MPV Neutrophils % Lymphocytes % Monocytes % Eosinophils % Basophils % Neutrophils # Lymphocytes # Monocytes # Eosinophils # Basophils # Sodium Potassium Chloride Carbon Dioxide Anion Gap BUN Creatinine Estimated GFR (MDRD) Glucose POC Glucose 145 H 132 H 104 Calcium Total Bilirubin AST ALT Alkaline Phosphatase Serum Total Protein Albumin Globulin Albumin/Globulin Ratio Urine Color Urine Clarity Urine pH Ur Specific [place] Urine Protein Urine Glucose (UA) Urine Ketones Urine Blood Urine Nitrite Urine Bilirubin Urine Urobilinogen Ur Leukocyte Esterase Urine RBC Urine WBC Ur Squamous Epith Cells Urine Bacteria Hyaline Casts Urine Culture Reflexed U Random Total Protein Urine Creatinine Urine Opiates Screen Ur Oxycodone Screen Urine Methadone Screen Ur Propoxyphene Screen Ur Barbiturates Screen Ur Tricyclics Screen Ur Phencyclidine Scrn Ur Amphetamines Screen U Methamphetamines Scrn U Benzodiazepines Scrn U Cocaine Metab Screen U Cannabinoids Screen Drug Screen Comment Syphilis IgG/IgM Ab Hep Bs Antigen Blood Type Blood Bank Comment 05/23/18 05/23/18 01:12 05:33 WBC RBC Hgb Hct MCV MCH MCHC RDW Plt Count MPV Neutrophils % Lymphocytes % Monocytes % Eosinophils % Basophils % Neutrophils # Lymphocytes # Monocytes # Eosinophils # Basophils # Sodium Potassium Chloride Carbon Dioxide Anion Gap BUN Creatinine Estimated GFR (MDRD) Glucose POC Glucose 230 H 197 H Calcium Total Bilirubin AST ALT Alkaline Phosphatase Serum Total Protein Albumin Globulin Albumin/Globulin Ratio Urine Color Urine Clarity Urine pH Ur Specific [place] Urine Protein Urine Glucose (UA) Urine Ketones Urine Blood Urine Nitrite Urine Bilirubin Urine Urobilinogen Ur Leukocyte Esterase Urine RBC Urine WBC Ur Squamous Epith Cells Urine Bacteria Hyaline Casts Urine Culture Reflexed U Random Total Protein Urine Creatinine Urine Opiates Screen Ur Oxycodone Screen Urine Methadone Screen Ur Propoxyphene Screen Ur Barbiturates Screen Ur Tricyclics Screen Ur Phencyclidine Scrn Ur Amphetamines Screen U Methamphetamines Scrn U Benzodiazepines Scrn U Cocaine Metab Screen U Cannabinoids Screen Drug Screen Comment Syphilis IgG/IgM Ab Hep Bs Antigen Blood Type Blood Bank Comment FMR OB AP PN: A/P - Problem List (1) Headache Current Visit: Yes Status: Acute Code(s): R51 - HEADACHE (2) Dizziness Current Visit: Yes Status: Acute Code(s): R42 - DIZZINESS AND GIDDINESS (3) GDM (gestational diabetes mellitus) Current Visit: Yes Status: Acute Code(s): O24.419 - GESTATIONAL DIABETES MELLITUS IN , UNSP CONTROL Qualifiers: Gestational diabetes mellitus control: oral hypoglycemic-controlled Trimester: third trimester Qualified Code(s): O24.415 - Gestational diabetes mellitus in , controlled by oral hypoglycemic drugs (4) History of section, low transverse Current Visit: Yes Status: Chronic Code(s): Z98.891 - HISTORY OF UTERINE SCAR FROM PREVIOUS SURGERY (5) History of spontaneous , currently Current Visit: Yes Status: Chronic Code(s): O09.299 - SUPRVSN OF PREG W POOR REPRODCTV OR OBSTET HISTORY, UNSP TRI (6) History of dilatation and curettage Current Visit: Yes Status: Chronic Code(s): Z98.890 - OTHER SPECIFIED POSTPROCEDURAL STATES (7) Hyperglycemia during Current Visit: Yes Status: Acute Code(s): O99.810 - ABNORMAL GLUCOSE COMPLICATING (8) History of drug abuse Current Visit: Yes Status: Chronic Code(s): Z87.898 - PERSONAL HISTORY OF OTHER SPECIFIED CONDITIONS (9) Tobacco use Current Visit: Yes Status: Chronic Code(s): Z72.0 - TOBACCO USE (10) Obesity Current Visit: Yes Status: Chronic Code(s): E66.9 - OBESITY, UNSPECIFIED (11) Carpal tunnel syndrome during Current Visit: Yes Status: Chronic Code(s): O26.899 - OTH RELATED CONDITIONS, UNSPECIFIED TRIMESTER; G56.00 - CARPAL TUNNEL SYNDROME, UNSPECIFIED UPPER LIMB (12) tachycardia Current Visit: Yes Status: Acute Code(s): VSE1991 - Disposition: 33YO at 35.6 weeks who presented to L&D via EMS with a CC of dizziness and a severe headache that began at approximately 0300 on 05/22/18. GDMA2: - Per patient just diagnosed on 05/21/18 and started on glyburide 2.5mg BID. Will d/c while in hospital as patient will likely need to be on insulin for adequate BG control. - BG ranged from 104 to 230 overnight. Patient received 4 units of SSI due to 2 elevations of 197 & 230. - Will continue Q4H BG checks for now but ensure PP levels are documented too. - Will consider stopping SSI and starting on JEMIMA insulin regimen today but may need one day of consistent BG monitoring before doing this. Headache: - Patient reports significant improvement since yesterday. Reports a 3/10 ANGEL this AM vs. 1010 on initial presentation. - s/p migraine protocol yesterday and pre-e workup that has been negative thus far. 24 hour urine Protein:Creatinine pending. Will be done this afternoon. - BPs overnight WNLs. - Will continue to monitor pain and treat w/ PRN tylenol and will watch BPs closely. tachycardia: - Improved. - Last recorded FHTs in the 150s before patient left L&D last night. - BPP on 05/22/18 had a score of 6/8, lost points for no respirations. EFW 3107g @ 84th percentile by Hadlock. AVRIL 7.2cm. Fetus in vertex position with anterior placenta and cervical length of just over 4cm. - Will consider getting QD FHTs via doppler while patient is on the floor to monitor fetus while in hospital. sIUP @ 35.5 weeks: - Aware. - status as described above. - IM Betamethasone given last night x1. Will give second dose today in anticipation of possible need for early delivery. Tobacco use: - Will encourage cessation. h/o + UDS for amphetamine: - Aware, UDS negative on admission. asthma: - Aware, will continue albuterol PRN. Patient states well-controlled and only uses inhaler and nebulizer PRN. h/o BV in : - Aware, s/p treatment. h/o yeast vaginitis in : - Aware, s/p treatment. Obesity: - Aware, will encourage lifestyle changes. Carpal tunnel syndrome: - Aware. DVT PPx: SCDs GI PPx: none Abx: none IVFs: SL Dispo: Will continue to monitor BP and BG levels on the floor today. Will start on JEMIMA insulin regimen prior to possible d/c tomorrow so long as BG levels are regulated, BPs remain WNLs & 24 hour urine Protein:Cr is below pre-e threshold. Discussion: Date/Time: 05/23/18 0620 This H&P was discussed with Dr. Stock and Dr. Ferreira who agree with the above documentation and plan.
[2018-05-23] MEDS: Prenatal Vitamin 1 TAB PO SCH (09:35)
[2018-05-23] MEDS: Acetaminophen 500 MG TAB PO PRN ×2 (12:36→18:24)
[2018-05-23 14:43] LABS: Collection Duration 24 hrs; Urine Total Volume 3300 mL (600-1600)
[2018-05-23 15:03] LABS: Protein - 24 Hr 495 mg/24 hr (Less than 300); Protein, Urine 15 mg/dL (1-14)
[2018-05-23] MEDS: Betamet Acet/Betamet Na Ph 30 MG/5 ML VIAL IM SCH (18:37)
[2018-05-23 21:09] LABS: 24 Hr Creatinine 2079.66 mg/24 hr (710-1650); Creatinine, Urine 63.02 mg/dL (47-110)
[2018-05-24] MEDS: Acetaminophen 500 MG TAB PO PRN ×4 (00:21→23:33)
[2018-05-24] MEDS: HumaLOG 300 UNITS/3 ML VIAL SC PRN ×2 (06:28→22:27)
[2018-05-24] MEDS ORDERED: HumaLOG 300 UNITS/3 ML VIAL SC SCH (08:30)
--- NOTE | 2018-05-24 08:47 | PDOC.OBAPN ---
FMR OB AP PN: Sub - Interval History Hospital Day: 2 Chief Complaint: Headache, dizziness, elevated BG Indentification: 33 year old at 36.0 wks by 8.5 wk sono Interval History: Patient doing well. ANGEL overnight relieved with tylenol. No acute events. FMR OB AP PN: Obj - Maternal Vital signs: BP: 101/52 HR: 100 RR: 18 Tmax: 98.4F Pox: 98% on RA Wt: 108.862 kg - Urine output I&O: 05/23/18 05/24/18 05/25/18 06:59 06:59 06:59 Output Total 300 Balance -300 FMR OB AP PN: Exam - Physical Exam General: NAD, awake, alert and oriented HEENT: EOMI, MMM, grossly normal hearing Neck: supple Heart: RRR, pulses present, no edema Deviation from normal: 3/6 systolic murmur General: CTAB, no respiratory distress, good air movement, no wheezing Abdomen: soft, gravid, non-tender Musculoskeletal: pulses present Neurological: no tremor, no focal deficit Skin: no rash, capillary refill <2 seconds Lymphatic: no unusual bruising or bleeding, no purpura Psychiatric: intact recent and remote memory, good judgement and insight, normal mood and affect FMR OB AP PN: Data - Labs Lab results: Laboratory Results - last 24 hr 05/22/18 05/23/18 05/23/18 14:16 09:22 13:38 POC Glucose 181 H 211 H Urine Protein Ur Collection Duration 24 Urine Total Volume 3300 H Urine Creatinine 63.02 Ur Creatinine 24 Hour 2079.66 H U Tot Protein 24h, Calc 05/23/18 05/23/18 05/24/18 14:16 19:21 06:22 POC Glucose 275 H 163 H Urine Protein 15 H Ur Collection Duration 24 Urine Total Volume 3300 H Urine Creatinine Ur Creatinine 24 Hour U Tot Protein 24h, Calc 495 FMR OB AP PN: A/P - Problem List (1) GDM (gestational diabetes mellitus) Current Visit: Yes Status: Acute Code(s): O24.419 - GESTATIONAL DIABETES MELLITUS IN , UNSP CONTROL Qualifiers: Gestational diabetes mellitus control: insulin-controlled Trimester: third trimester Qualified Code(s): O24.414 - Gestational diabetes mellitus in , insulin controlled (2) History of section, low transverse Current Visit: Yes Status: Chronic Code(s): Z98.891 - HISTORY OF UTERINE SCAR FROM PREVIOUS SURGERY (3) Tobacco use Current Visit: Yes Status: Chronic Code(s): Z72.0 - TOBACCO USE (4) Third trimester Current Visit: No Status: Acute Code(s): Z34.93 - ENCNTR FOR SUPRVSN OF NORMAL PREG, UNSP, THIRD TRIMESTER (5) Asthma Current Visit: Yes Status: Chronic Code(s): J45.909 - UNSPECIFIED ASTHMA, UNCOMPLICATED Disposition: 33YO at 36.0 weeks who presented to L&D via EMS with a CC of dizziness and a severe headache that began at approximately 0300 on 05/22/18. GDMA2, insulin dependent: - Per patient just diagnosed on 05/21/18 and started on glyburide 2.5mg BID. Due to elevated BG during hospitalization, patient transitioned to insulin SS. - BG ranged from 163-275 over the last day; She received 10 units SSI. Due to persistently elevated BG, will start patient on insulin regimen 0.5 units/kg divided into long acting and short acting insulin (25 units lantus, 7 units humolag TID). Will switch to aggressive SSI to cover for BG not controlled by javad insulin. - Continue accuchecks (FBG and 2h PP BG) Pre-Eclampsia - 24 hour urine protein 495 with no past documented history of proteinuria - Elevated BP on admission; however, patient was in significant amount of pain. No elevated BP's during hospitalization since that time - Continue to monitor BP's and observe for severe features Headache: - Improved since admission; one headache overnight worse with coughing and described as pressure in temporal and frontal regions. Relieved with tylenol. - BPs overnight WNLs. - Will continue to monitor pain and treat w/ PRN tylenol and will watch BPs closely. tachycardia: - Improved per last report; have not seen NST strip today. - BPP on 05/22/18 had a score of 6/8, lost points for no respirations. EFW 3107g @ 84th percentile by Hadlock. AVRIL 7.2cm. Fetus in vertex position with anterior placenta and cervical length of just over 4cm. Patient has appt for at [facility] [place] for evaluation of placenta. - Will consider getting QD FHTs via doppler while patient is on the floor to monitor fetus while in hospital. sIUP @ 36.0 weeks: - status as described above. - s/p betamethasone x2 Tobacco use: - Will encourage cessation. - At risk h/o + UDS for amphetamine: - Aware, UDS negative on admission. asthma: - Aware, will continue albuterol PRN. Patient states well-controlled and only uses inhaler and nebulizer PRN. - No hemabate PP h/o BV in : - Aware, s/p treatment. h/o yeast vaginitis in : - Aware, s/p treatment. Obesity: - Aware, will encourage lifestyle changes. Carpal tunnel syndrome: - Aware. DVT PPx: SCDs GI PPx: none IVFs: SL Discussion: Date/Time: 05/24/18 1525 This H&P was discussed with Dr. Ferreira who agrees with the above documentation and plan. Signature: Azul Juan, DO PGY-2
[2018-05-24] MEDS: Insulin Glargine 25 UNITS in Pre-Filled Syringe 1 EACH SC SCH (09:40)
[2018-05-24] MEDS: Prenatal Vitamin 1 TAB PO SCH (09:41)
[2018-05-24] MEDS ORDERED: HumaLOG 300 UNITS/3 ML VIAL SC PRN (11:30)
[2018-05-24] MEDS ORDERED: Dextrose 5% in Water 1,000 ML IV PRN (11:30)
[2018-05-24] MEDS ORDERED: Dextrose 50% Abboject 50 ML SYRINGE SLOW IVP PRN (11:30)
[2018-05-24] MEDS: HumaLOG 300 UNITS/3 ML VIAL SC SCH ×2 (13:12→18:49)
[2018-05-25] MEDS: Betamet Acet/Betamet Na Ph 30 MG/5 ML VIAL IM SCH (07:17)
[2018-05-25] MEDS: HumaLOG 300 UNITS/3 ML VIAL SC SCH ×3 (07:41→18:00)
[2018-05-25] MEDS: Insulin Glargine 25 UNITS in Pre-Filled Syringe 1 EACH SC SCH (09:28)
[2018-05-25] MEDS: Prenatal Vitamin 1 TAB PO SCH (09:28)
[2018-05-25] MEDS ORDERED: Insulin Glargine 30 UNITS in Pre-Filled Syringe 1 EACH SC SCH (09:54)
[2018-05-25] MEDS: Acetaminophen 500 MG TAB PO PRN ×2 (10:35→18:04)
--- NOTE | 2018-05-25 13:00 | PDOC.OBAPN ---
FMR OB AP PN: Sub - Interval History Hospital Day: 3 Chief Complaint: Headache, Poor BG control Indentification: 33 year old at 36.1 wks Interval History: Headache this AM, improved with tylenol. No significant overnight events. FMR OB AP PN: Obj - Maternal Vital signs: BP: 111/82 HR: 96 RR: 20 Tmax: 98.3 F Pox: 98% on RA Wt: 108.86 kg - Urine output I&O: 05/24/18 05/25/18 05/26/18 06:59 06:59 06:59 Output Total 300 Balance -300 FMR OB AP PN: Exam - Physical Exam General: NAD, awake, alert and oriented HEENT: MMM, grossly normal vision, grossly normal hearing Neck: supple Heart: RRR, other (3/6 systolic murmur) General: CTAB, no respiratory distress Abdomen: soft, gravid, non-tender Musculoskeletal: pulses present Neurological: no tremor, no focal deficit Skin: no rash, capillary refill <2 seconds Lymphatic: no unusual bruising or bleeding, no purpura Psychiatric: intact recent and remote memory, good judgement and insight, normal mood and affect FMR OB AP PN: Data - Labs Lab results: Laboratory Results - last 24 hr 05/24/18 05/24/18 05/25/18 15:29 20:51 05:57 POC Glucose 306 H 296 H 117 H 05/25/18 10:39 POC Glucose 136 H FMR OB AP PN: A/P - Problem List (1) GDM (gestational diabetes mellitus) Current Visit: Yes Status: Acute Code(s): O24.419 - GESTATIONAL DIABETES MELLITUS IN , UNSP CONTROL Qualifiers: Gestational diabetes mellitus control: insulin-controlled Trimester: third trimester Qualified Code(s): O24.414 - Gestational diabetes mellitus in , insulin controlled (2) History of section, low transverse Current Visit: Yes Status: Chronic Code(s): Z98.891 - HISTORY OF UTERINE SCAR FROM PREVIOUS SURGERY (3) Tobacco use Current Visit: Yes Status: Chronic Code(s): Z72.0 - TOBACCO USE (4) Third trimester Current Visit: No Status: Acute Code(s): Z34.93 - ENCNTR FOR SUPRVSN OF NORMAL PREG, UNSP, THIRD TRIMESTER (5) Asthma Current Visit: Yes Status: Chronic Code(s): J45.909 - UNSPECIFIED ASTHMA, UNCOMPLICATED Disposition: 33YO at 36.1 weeks who presented to L&D via EMS with a CC of dizziness and a severe headache that began at approximately 0300 on 05/22/18. GDMA2, insulin dependent: - Per patient just diagnosed on 05/21/18 and started on glyburide 2.5mg BID. Due to elevated BG during hospitalization, patient transitioned to insulin SS. - BG ranged from 163-306 over the last day; She received 10 units SSI. Due to persistently elevated BG, started patient on insulin regimen 0.5 units/kg divided into long acting and short acting insulin (25 units lantus, 7 units humolag TID). Switched to aggressive SSI to cover for BG not controlled by javad insulin. Patient required 11 units of SSI after lunch and 3 units at bedtime. Increased lantus to 30 units and mealtime insulin to 10 units TID. - Continue accuchecks (FBG and 2h PP BG) - Encouraged nursing staff to assist patient with insulin injections to help her learn prior to d/c - HgA1c pending Pre-Eclampsia - 24 hour urine protein 495 with no past documented history of proteinuria - Elevated BP on admission; however, patient was in significant amount of pain. No elevated BP's during hospitalization since that time - Continue to monitor BP's and observe for severe features; BP's well controlled Headache: - Improved since admission; one headache overnight worse with coughing and described as pressure in temporal and frontal regions. Relieved with tylenol. - BPs overnight WNLs. - Will continue to monitor pain and treat w/ PRN tylenol and will watch BPs closely. - ANGEL this AM improved with tylenol tachycardia: - Improved per last report; have not seen NST strip today. - BPP on 05/22/18 had a score of 6/8, lost points for no respirations. EFW 3107g @ 84th percentile by Hadlock. AVRIL 7.2cm. Fetus in vertex position with anterior placenta and cervical length of just over 4cm. Patient has appt for at [facility] for evaluation of placenta. - Qshift NST sIUP @ 36.0 weeks: - status as described above. - s/p betamethasone x2 Tobacco use: - Will encourage cessation. - At risk h/o + UDS for amphetamine: - Aware, UDS negative on admission. asthma: - Aware, will continue albuterol PRN. Patient states well-controlled and only uses inhaler and nebulizer PRN. - No hemabate PP h/o BV in : - Aware, s/p treatment. h/o yeast vaginitis in : - Aware, s/p treatment. Obesity: - Aware, will encourage lifestyle changes. Carpal tunnel syndrome: - Aware. DVT PPx: SCDs GI PPx: none IVFs: SL Dispo: Stable. Titrate insulin and teach patient how to use. Plan for possible d /c home tomorrow. Discussion: Date/Time: 05/25/18 8414 This H&P was discussed with Dr. Ferreira who agrees with the above documentation and plan. Signature: Azul Juan, DO PGY-2
[2018-05-25 14:11] LABS: Hemoglobin A1c 6.2 % (4.0-6.0)
[2018-05-25] MEDS ORDERED: Insulin Glargine 5 UNITS in Pre-Filled Syringe SC SCH (17:00)
[2018-05-25] MEDS ORDERED: HumaLOG 300 UNITS/3 ML VIAL SC SCH (17:30)
[2018-05-25] MEDS: HumaLOG 300 UNITS/3 ML VIAL SC PRN (21:33)
--- NOTE | 2018-05-26 07:20 | PDOC.OBAPN ---
R OB AP PN: Sub - Interval History Hospital Day: 5 Chief Complaint: headache and dizziness Indentification: Interval History: Patient has been started on JEMIMA insulin QAM & AC. R OB AP PN: Obj - Maternal Vital signs: BP: 12/63 HR: 85 RR: 18 Tmax: 98.2F Pox: 96% on RA Wt: 108.862 kg - Heart Tones Baseline: 150 (obtained yesterday via dopplers) [facility] OB AP PN: Exam - Physical Exam General: NAD HEENT: normocephalic and atraumatic, grossly normal vision, grossly normal hearing Neck: supple, FROM Heart: RRR, normal S1/S2, no edema General: CTAB, no respiratory distress, good air movement, no rales/rhonchi, no wheezing Abdomen: gravid, bowel sound present Musculoskeletal: FROM in all four extremities Neurological: cranial nerves II through XII intact (grossly), sensation to pain, touch and proprioception grossly normal, no focal deficit Skin: no rash, good tugor Lymphatic: no unusual bruising or bleeding, no purpura Psychiatric: intact recent and remote memory, good judgement and insight, normal mood and affect [facility] OB AP PN: Data - Labs Lab results: Laboratory Results - last 24 hr 05/25/18 05/25/18 05/25/18 10:39 13:41 15:56 POC Glucose 136 H 185 H Hemoglobin A1c 6.2 H 05/25/18 05/26/18 21:31 06:14 POC Glucose 215 H 120 H Hemoglobin A1c [facility] OB PN: A/P - Problem List (1) Headache Current Visit: Yes Status: Acute Code(s): R51 - HEADACHE (2) Dizziness Current Visit: Yes Status: Acute Code(s): R42 - DIZZINESS AND GIDDINESS (3) GDM (gestational diabetes mellitus) Current Visit: Yes Status: Acute Code(s): O24.419 - GESTATIONAL DIABETES MELLITUS IN , UNSP CONTROL Qualifiers: Gestational diabetes mellitus control: insulin-controlled Trimester: third trimester Qualified Code(s): O24.414 - Gestational diabetes mellitus in , insulin controlled (4) History of section, low transverse Current Visit: Yes Status: Chronic Code(s): Z98.891 - HISTORY OF UTERINE SCAR FROM PREVIOUS SURGERY (5) History of spontaneous , currently Current Visit: Yes Status: Chronic Code(s): O09.299 - SUPRVSN OF PREG W POOR REPRODCTV OR OBSTET HISTORY, UNSP TRI (6) History of dilatation and curettage Current Visit: Yes Status: Chronic Code(s): Z98.890 - OTHER SPECIFIED POSTPROCEDURAL STATES (7) Hyperglycemia during Current Visit: Yes Status: Acute Code(s): O99.810 - ABNORMAL GLUCOSE COMPLICATING (8) History of drug abuse Current Visit: Yes Status: Chronic Code(s): Z87.898 - PERSONAL HISTORY OF OTHER SPECIFIED CONDITIONS (9) Tobacco use Current Visit: Yes Status: Chronic Code(s): Z72.0 - TOBACCO USE (10) Obesity Current Visit: Yes Status: Chronic Code(s): E66.9 - OBESITY, UNSPECIFIED (11) Carpal tunnel syndrome during Current Visit: Yes Status: Chronic Code(s): O26.899 - OTH RELATED CONDITIONS, UNSPECIFIED TRIMESTER; G56.00 - CARPAL TUNNEL SYNDROME, UNSPECIFIED UPPER LIMB (12) tachycardia Current Visit: Yes Status: Acute Code(s): MXT1998 - Disposition: 33YO at 36.2 weeks who presented to L&D via EMS with a CC of dizziness and a severe headache who was found to be hyperglycemic w/ a BG of 310. GDMA2, insulin dependent: - Per patient just diagnosed on 05/21/18 and started on glyburide 2.5mg BID. Due to elevated BG during hospitalization, patient transitioned to insulin SS. - BG ranged from 117-215 yesterday which is significantly improved; She received only 2 units of SSI. This was after getting 25 units of lantus QAM, 7 units of humalog TID. Today patient is JEMIMA to get 30 units of lantus this AM and 10 units of Humalog TID. - Will continue accuchecks (FBG and 2h PP BG). - Encouraged nursing staff to assist patient with insulin injections to help her learn prior to d/c. - HgA1c 6.2. Pre-Eclampsia - 24 hour urine protein 495 with no past documented history of proteinuria - Elevated BP on admission; however, patient was in significant amount of pain. No elevated BP's during hospitalization since that time - Continue to monitor BP's and observe for severe features; BP's well controlled Headache: - Improved since admission; one headache overnight worse with coughing and described as pressure in temporal and frontal regions. Relieved with tylenol. - BPs overnight WNLs. - Will continue to monitor pain and treat w/ PRN tylenol and will watch BPs closely. - ANGEL this AM improved with tylenol tachycardia: - Improved per last report; FHR in the 150s via external monitoring yesterday @ 23:00. - BPP on 05/22/18 had a score of 6/8, lost points for no respirations. EFW 3107g @ 84th percentile by Hadlock. AVRIL 7.2cm. Fetus in vertex position with anterior placenta and cervical length of just over 4cm. Patient has appt for at [facility] for evaluation of placenta. - Qshift NST sIUP @ 36.0 weeks: - status as described above. - s/p betamethasone x2 Tobacco use: - Will encourage cessation. - At risk h/o + UDS for amphetamine: - Aware, UDS negative on admission. asthma: - Aware, will continue albuterol PRN. Patient states well-controlled and only uses inhaler and nebulizer PRN. - No hemabate PP h/o BV in : - Aware, s/p treatment. h/o yeast vaginitis in : - Aware, s/p treatment. Obesity: - Aware, will encourage lifestyle changes. Carpal tunnel syndrome: - Aware. DVT PPx: SCDs GI PPx: none IVFs: SL Dispo: Stable. Titrate insulin and teach patient how to use. Plan for possible d /c home today. Discussion: Date/Time: 05/26/18 4717 This H&P was discussed with [] and [] who agree with the above documentation and plan.
[2018-05-26] MEDS: Prenatal Vitamin 1 TAB PO SCH (08:16)
[2018-05-26] MEDS: HumaLOG 300 UNITS/3 ML VIAL SC SCH ×2 (08:17→12:33)
[2018-05-26] MEDS ORDERED: Insulin Glargine 30 UNITS in Pre-Filled Syringe SC SCH (09:00)
[2018-05-26 11:43] VITALS: BP 149/73; TEMP 97.7
[2018-05-26] MEDS: Acetaminophen 500 MG TAB PO PRN (13:37)
--- NOTE | 2018-05-26 13:42 | DIS ---
DATE OF ADMISSION: 05/22/2018 DATE OF DISCHARGE: 05/26/2018 RESIDENT: Dr. Gladys Nelson. ADMITTING ATTENDING: Dr. Bennie Hartley. DISCHARGE ATTENDING: Dr. Trevor Ferreira. CONSULTS: REFRACTORY FURNACE DESIGNER, Dr. Rodrick Moore. PROCEDURES: 1. Brain CT on 05/22/2018, which showed no acute intracranial abnormalities. 2. ultrasound on 05/22/2018, which showed a single live intrauterine gestation estimated at 36 and 5 days by ultrasound with a low normal amniotic fluid index and a biophysical profile score 6/8. Cervical length is 4.4 cm. This was in anterior location without evidence of previa. Estimated weight of 3107 +/- 460 g. Amniotic fluid index is 7.2. PRIMARY DIAGNOSES: 1. Hyperglycemia during secondary to poorly controlled A2 gestational diabetes mellitus. 2. Mild preeclampsia. SECONDARY DIAGNOSES: 1. History of section, low transverse. 2. History of spontaneous , currently . 3. History of dilation and curettage. 4. History of drug abuse in , currently . 5. History of tobacco use. 6. Obesity. 7. Carpal tunnel syndrome during . 8. Asthma. DISCHARGE MEDICATIONS: 1. vitamins 1 tablet p.o. daily. 2. Albuterol sulfate 3 mL nebulized every 6 hours p.r.n. for shortness of breath and wheezing. 3. Proventil 2 puffs inhaled p.r.n. for shortness of breath and wheezing. 4. Acetaminophen 1000 mg p.o. every 4 hours p.r.n. for pain. 5. Humalog 20 units subcu with meals. 6. Insulin glargine 35 units subcu q.a.m. DISCONTINUED MEDICATIONS: Glyburide 2.5 mg p.o. b.i.d. HOSPITAL COURSE: The patient is a 33-year-old, G3, P1-0-1-1, who presented to Labor and Delivery via EMS at 34.4 weeks, consistent with her last menstrual period and an 8.5-week sono with a chief complaint of severe headache and dizziness that began around 3:00 a.m. on the morning of presentation. Of note, the patient reported being diagnosed with gestational diabetes one day prior to presentation and was started on p.o. glyburide 2.5 mg p.o. b.i.d. She reports taking her evening glyburide dose and states that her only reported blood sugar at home before presenting to the hospital was over 200 after dinner. On presentation, the patient was in significant distress secondary to what she described to be the worst headache of her life. History was initially difficult to obtain 2/2 pain from her headache. Her initial vitals on presentation were within normal limits with the exception of tachycardia with a heart rate of 100. She was given 1 g of p.o. Tylenol and her headache did not improve at all so she was therefore taken down for a CT of the brain to rule out any acute intracranial hemorrhage or other acute IC findings that could explain her severe sudden onset headache. Fortunately, her head CT was read to show no acute intracranial abnormalities so her headache was then aggressively treated per the headache protocol and the patient was given a total of two doses of IV Benadryl and four doses of IV Reglan, which resulted in significant improvement of her headache. Also, of note, the patient had two isolated elevated blood pressures greater than 140 systolic, which in combination with her headache was concerning for possible development of new onset preeclampsia. Her initial spot urine protein creatinine ratio was just above 0.3, so a 24-hour urine protein creatinine ratio was therefore ordered to be collected over the next day. Routine labs were also obtained on presentation including a CBC, CMP, UA, and UDS, all of which were negative with the exception of hyperglycemia with a BG level of 244, and glucosuria greater than 1000. Of note, her initial point of care glucose level was measured to be 310 and was reported to be 340 via EMS. Thus, for her hyperglycemia, the patient was given 5 units of regular insulin and ultimately admitted to the floor for close monitoring of her blood sugars and blood pressures and was given one dose of IM betamethasone with second dose to be administered 24 hours later. On the floor, the patient was initially treated with sliding scale insulin for gestational diabetes, but over the course of her hospital stay was transitioned to a scheduled basal and mealtime insulin regimen, which by the date of discharge was titrated to 30 units of Lantus in the morning and 15 units of Humalog with meals. By the morning of discharge, the patient's fasting blood glucose levels noted to be 120 and her 2-hour postprandial following breakfast was noted to be 129, which was substantial improvement from her initial blood glucose levels. The patient's blood pressures also remained normal for the remainder of her hospital stay; however, the patient's 24-hour urine protein was elevated at 495, consistent with diagnosis of mild preeclampsia. Thus, by the morning of discharge, the patient was ordered to increase her Lantus dosing to 40 units daily and mealtime Humalog to 20 units with meals and was counseled extensively on the importance of monitoring her blood sugar in keeping her diabetes well controlled. In addition, due to her diagnosis of preeclampsia, the patient was advised to obtain a home blood pressure cuff and to monitor her blood pressure daily and was scheduled for a repeat during the 37th week of gestation prior to leaving the hospital. DISPOSITION: Stable. DISCHARGE INSTRUCTIONS: 1. Location: Home. 2. Diet: Diabetic diet. 3. Activity: As tolerated. 4. Followup: The patient was instructed to follow up with the Maternal- specialist on Saturday, May 30, 2018, and to schedule an appointment with her primary care physician, Dr. Trevor Ferreira within one week of discharge for close follow- up of her gestational diabetes and blood pressures. Job ID: [id number] GONZÁLEZ
== END 2018-05-26 13:40 | disposition home or self-care (01) | DRG 832 ==
LOC: L&D/OP 06:21 → 3SW 14:34
PROVIDERS: ADMIT Family Medicine; ATTEND Family Medicine
DX: O24.414 Gestational diabetes mellitus in pregnancy, insulin controlled (principal); O14.03 Mild to moderate pre-eclampsia, third trimester; Z3A.35 35 weeks gestation of pregnancy; O99.333 Smoking (tobacco) complicating pregnancy, third trimester; F17.210 Nicotine dependence, cigarettes, uncomplicated; J45.909 Unspecified asthma, uncomplicated; O76 Abnormality in fetal heart rate and rhythm complicating labor and delivery; O99.213 Obesity complicating pregnancy, third trimester; O26.893 Other specified pregnancy related conditions, third trimester; G56.00 Carpal tunnel syndrome, unspecified upper limb; E66.9 Obesity, unspecified
CPT/HCPCS: 36415; 36416; 59025; 70450; 76805; 76819; 80053; 80306; 81001; 82570; 83036; 84156; 85025; 86780; 87340; 94640; J0702; J1200; J1815; J2765; J7050

== ENCOUNTER 2018-06-07 14:52 | Day surgery (SDC) | payer OTHER ==
[2018-06-07 15:31] VITALS: BP 119/66; TEMP 97.9; BMI 44.6
== END 2018-06-07 16:55 | disposition home health service (06) ==
LOC: L&D/OP 14:52
PROVIDERS: ATTEND Family Medicine
DX: O99.280 Endocrine, nutritional and metabolic diseases complicating pregnancy, unspecified trimester (principal); R73.9 Hyperglycemia, unspecified; Z79.01 Long term (current) use of anticoagulants; Z79.899 Other long term (current) drug therapy
CPT/HCPCS: 36416; 99282

== ENCOUNTER 2018-06-08 23:43 | Inpatient (IN) | payer OTHER ==
--- NOTE | 2018-06-07 16:19 | PDOC.FPROB ---
FMR OB H&P: HPI - History of Present Illness Chief Complaint: elevated glucose Indentification: 32 y/o at 36.6wks by 8.5wk sono PATTI 06/29/18 History of Present Illness: Pt presents today after her home glucometer read 300+ she immediately headed to the hospital. upon recheck on L&D of pt and floor glucometer both read 95. Pt denies taking any additional insulin, fever/chills, syncope, diaphoresis or recent illness. She is feeling baby move and denies any VB/VD, headache or swelling. Primary Care Physician: Dr. 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 - Social History Social History: positive for meth in february, denies current drug use FMR OB H&P: Medications - Current Home Medications: Medication Instructions Recorded Confirmed Type 21/Iron Fu/Folic Acid 1 tablet PO DAILY 02/19/18 06/07/18 History [ Complete Caplet] Albuterol Sulfate HFA (OR) 2 puff IH PRN PRN 04/29/18 06/07/18 History [Proventil Hfa (or)] HumaLOG [HumaLOG Vial] 22 units SC AC 06/07/18 06/07/18 History Insulin Glargine [Lantus Vial] 22 units SC BID-WM 06/07/18 06/07/18 History Allergies/Adverse Reactions: Allergies Allergy/AdvReac Type Severity Reaction Status Date / Time No Known Allergies Allergy Verified 04/29/18 23:10 FMR OB H&P: ROS - Review of Systems General: denies: fever/chills, weight/appetite/sleep changes Eyes: denies: vision changes Cardiovascular: denies: chest pain Respiratory: denies: shortness of breath Gastrointestinal: denies: abdominal pain Genitourinary (Female): denies: vaginal discharge, vaginal pain, vaginal bleeding Neurologic: denies: syncope Integumentary: denies: rash FMR OB H&P: Vital Signs - Maternal Vital signs: 119/66 p 88 - Heart Tones Baseline: 140 Variability: moderate FMR OB H&P: Physical Exam - Physical Exam General: NAD HEENT: normocephalic and atraumatic, grossly normal vision, grossly normal hearing Neck: trachea midline Chest: non-tender to palpation Heart: RRR, normal S1/S2, no murmurs/rubs/gallops General: CTAB, no respiratory distress, good air movement Abdomen: soft, gravid, non-tender Musculoskeletal: pulses present Neurological: cranial nerves II through XII intact Skin: no rash Lymphatic: no unusual bruising or bleeding Psychiatric: intact recent and remote memory FMR OB H&P: A/P - Problem List (1) GDM (gestational diabetes mellitus) Status: Acute Code(s): O24.419 - GESTATIONAL DIABETES MELLITUS IN , UNSP CONTROL Qualifiers: Gestational diabetes mellitus control: insulin-controlled Trimester: third trimester Qualified Code(s): O24.414 - Gestational diabetes mellitus in , insulin controlled Assessment and Plan: - recent checks besides the one above 300 have been around 100. on the floor glucometer reads 95 - likely error in glucometer - continue home lantus dosing and monitoring (2) History of section, low transverse Status: Chronic Code(s): Z98.891 - HISTORY OF UTERINE SCAR FROM PREVIOUS SURGERY Assessment and Plan: scheduled for repeat LTCS 06/09/18 (3) History of drug abuse Status: Chronic Code(s): Z87.898 - PERSONAL HISTORY OF OTHER SPECIFIED CONDITIONS Assessment and Plan: recent negative UDS on 05/22/18 (4) Obesity Status: Chronic Code(s): E66.9 - OBESITY, UNSPECIFIED Assessment and Plan: aware, encourage healthy lifestyle choices Disposition: Ok to DC home, follow up on 06/09 for CS Discussion: Date/Time: 06/07/18 9055 This H&P was discussed with Dr. Ko and Dr. Cunha who agree with the above documentation and plan. Addendum - Attending - Attending Attestation Date/Time: 06/07/18 9767 I personally evaluated the patient and discussed the management with Dr. Marsh I agree with the History, Examination, Assessment and Plan documented above with any addition or exceptions noted below. 33 yo female at 36.6 wks by 8.3 wk alysha presents for evaluation of elevated glucose. Patient reports elevated glucose reading at home up to 300. Did not repeat. Asymptomatic. Presented quickly to triage. Repeat POC glucose x 2 90s. VS reviewed. Labs reviewed. recorded reviewed. Patient reassured. Education provided. FHR Reactive. 1. Uncontrolled A2 GDM on insulin: Over the last week glucose has been better controlled. +FM. No episodes of hypoglycemia. No episodes of hyperglycemia over 140 except today. However not true hyperglycemic event. Reassurance provided. NST reactive. Has scheduled repeat c/s at 37 wks. Follow up pp. 2. gestational proteinuria: Concern during past hospital admission for preeclampsia. 24 hour protein 495. Mild range BP x3 throughout a several day stay. Initially with headache but improved. Currently monitoring BP at home. No mild or severe range BP. Normotensive today. No lab abnormalities. Appropriate growth. MFM following. Possible atypical presentation. Urine culture not performed at time of protein collection. 24 hour not repeated. Would consider repeating to see if patient has underlying undx DM with renal disease. 3. hx of LTCS for NRFHT: Considering TOLAC but has repeat c/s scheduled at 37 wks. 4. obesity: Risk for complications. Consider wound vac for closure. 5. drug use during : CM/CPS to be consulted. Repeat UDS on admission. Denies any recent use. Ok to d/c to home. Patient to return as needed. Scheduled for admission on Saturday night. ABrtoddMD
[2018-06-09 00:33] VITALS: BMI 44.8
--- NOTE | 2018-06-09 00:42 | PDOC.FPROB ---
FMR OB H&P: HPI - History of Present Illness Chief Complaint: GDM Indentification: 32 yo at 37.1wks by LMP c/w 8.5wk sono PATTI 06/29/18 History of Present Illness: Pt has scheduled C/S 0730 on 06/09/18. Pt with gDM requiring insulin. Reportedly uncontrolled blood sugars. Lantus 22U BID and Humalog with meals 22, 24 and 22. Did not take PM dose of Lantus tonight. Endorses movement. Denies VB/LOF/ CTX or change in discharge. Denies CP, SOB, ANGEL, vision changes, edema. Blood sugars have been running low 100's fasting. Primary Care Physician: Dr Ferreira FMR OB H&P: Current - Care : 3 Para: 1 Gestational age: 37.1 Due date: 06/29/18 Dating Criteria: LMP c/w 8.5wk US Total weight gain: 29 Course/Complications: gDM - OB Labs Blood type: A RH: positive Antibody Screen: negative HIV: negative RPR: negative HepBsAg: negative Rubella: immune Quad screen: unknown (declined) Urine drug screen: positive (meth in february) Chlamydia: negative Pap Smear: neg 1 hour gtt: positive A1c: 6.2 on 05/25 GBS: unknown - First Trimester Ultrasound First trimester: live sIUP w/ new PATTI based on sono of 06/29/2018 - Anatomy Survey Anatomy survey: Female fetus w/ no anomalies detected. No cervical funneling or shortening noted. 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 [employer] History: no h/o abnormal pap; NILM in 2017 - Social History Social History: + for tobacco use and h/o + UDS in February for amphetamines; UDS on 05/22/18 negative No EtOH use - Family History Family History: Unremarkable FMR OB H&P: Medications - Current Home Medications: Medication Instructions Recorded Confirmed Type 21/Iron Fu/Folic Acid 1 tablet PO DAILY 02/19/18 06/09/18 History [ Complete Caplet] Albuterol Sulfate HFA (OR) 2 puff IH PRN PRN 04/29/18 06/09/18 History [Proventil Hfa (or)] HumaLOG [HumaLOG Vial] 22 units SC AC 06/07/18 06/09/18 History Insulin Glargine [Lantus Vial] 22 units SC BID-WM 06/07/18 06/09/18 History Allergies/Adverse Reactions: Allergies Allergy/AdvReac Type Severity Reaction Status Date / Time No Known Allergies Allergy Verified 04/29/18 23:10 FMR OB H&P: ROS - Review of Systems General: denies: fever/chills, weight/appetite/sleep changes Eyes: denies: vision changes, double vision, scotomas, floaters ENT: denies: nasal congestion, rhinorrhea, sore throat Cardiovascular: denies: chest pain, palpitation Respiratory: reports: shortness of breath (asthma, last inhaler use 2/3). denies: cough, congestion Gastrointestinal: denies: abdominal pain, nausea, vomiting Genitourinary (Female): reports: vaginal pressure. denies: vaginal discharge, vaginal pain, vaginal bleeding, contractions Musculoskeletal: denies: pain, swelling Neurologic: denies: seizures, weakness Integumentary: denies: rash, lesions FMR OB H&P: Vital Signs - Maternal Vital signs: Vital Signs - First Documented Temp Pulse Resp BP 98.3 F 98 20 138/70 06/09/18 00:15 06/09/18 00:15 06/09/18 00:15 06/09/18 00:15 - Heart Tones Baseline: 150 Variability: moderate Acceleration: present Deceleration: variable Category: category 2 FMR OB H&P: Physical Exam - Physical Exam General: NAD, awake, alert and oriented HEENT: normocephalic and atraumatic, MMM, conjunctiva clear, oropharynx clear Neck: supple, trachea midline Breast: symmetric Heart: RRR, no murmurs/rubs/gallops, pulses present General: CTAB, no respiratory distress, no wheezing Abdomen: soft, gravid, non-tender, bowel sound present Musculoskeletal: normal gait and station, pulses present, FROM in all four extremities, no misalignment/asymmetry, no atrophy Neurological: no focal deficit Skin: no rash, capillary refill <2 seconds, no jaundice Lymphatic: no petechia Psychiatric: intact recent and remote memory, good judgement and insight, normal mood and affect - Pelvic Exam Membranes: Intact Estimated Weight: 8 lbs FMR OB H&P: A/P - Problem List (1) Positive urine drug screen Current Visit: Yes Status: Acute Code(s): R82.5 - ELEVATED URINE LEVELS OF DRUG/MEDS/BIOL SUBST (2) GDM (gestational diabetes mellitus) Current Visit: No Status: Acute Code(s): O24.419 - GESTATIONAL DIABETES MELLITUS IN , UNSP CONTROL Qualifiers: Gestational diabetes mellitus control: insulin-controlled Trimester: third trimester Qualified Code(s): O24.414 - Gestational diabetes mellitus in , insulin controlled (3) Hyperglycemia during Current Visit: No Status: Acute Code(s): O99.810 - ABNORMAL GLUCOSE COMPLICATING (4) Third trimester Current Visit: No Status: Acute Code(s): Z34.93 - ENCNTR FOR SUPRVSN OF NORMAL PREG, UNSP, THIRD TRIMESTER (5) Asthma Current Visit: No Status: Chronic Code(s): J45.909 - UNSPECIFIED ASTHMA, UNCOMPLICATED (6) Carpal tunnel syndrome during Current Visit: No Status: Chronic Code(s): O26.899 - OTH RELATED CONDITIONS, UNSPECIFIED TRIMESTER; G56.00 - CARPAL TUNNEL SYNDROME, UNSPECIFIED UPPER LIMB (7) History of section, low transverse Current Visit: No Status: Chronic Code(s): Z98.891 - HISTORY OF UTERINE SCAR FROM PREVIOUS SURGERY (8) History of dilatation and curettage Current Visit: No Status: Chronic Code(s): Z98.890 - OTHER SPECIFIED POSTPROCEDURAL STATES (9) History of drug abuse Current Visit: No Status: Chronic Code(s): Z87.898 - PERSONAL HISTORY OF OTHER SPECIFIED CONDITIONS (10) History of spontaneous , currently Current Visit: No Status: Chronic Code(s): O09.299 - SUPRVSN OF PREG W POOR REPRODCTV OR OBSTET HISTORY, UNSP TRI (11) Obesity Current Visit: No Status: Chronic Code(s): E66.9 - OBESITY, UNSPECIFIED (12) Tobacco use Current Visit: No Status: Chronic Code(s): Z72.0 - TOBACCO USE Disposition: 32 yo at 37.1wks by LMP c/w 8.5wk sono PATTI 06/29/18 Uncontrolled A2 GDM on insulin - Currently taking Lantus 22U BID, Novolog 24,22,24 with meals. At last discharge pt instructed to take Lantus 40U BID - HgbA1c 6.2% on 05/25 - No episodes of hypoglycemia - NST reactive - Glucose 102, will recheck in 1 hr and space out if stable - Scheduled for GDM 06/09 - Pt did not take PM dose of Lantus will give 20U as she will be NPO for surgery in AM - Will need f/u Gestational proteinuria - 24hr protein 495 - Mild range BPs during hospital stay - Normotensive currently Hx of LTCS for NRFHT - Repeat C/S scheduled 06/09 Positive UDS for meth during - Will obtain UDS Obesity Tobacco Abuse during - Currently smoking a few puffs of a cigarette per day Discussion: Date/Time: 06/09/1839 This H&P was discussed with Dr. Vasquez and Dr. Padilla who agree with the above documentation and plan.
[2018-06-09] MEDS ORDERED: Promethazine HCl 25 MG/ML VIAL IM PRN ×2 (01:33→08:22)
[2018-06-09] MEDS ORDERED: CEFAZOLIN/Water 2 GM/20 ML SYRINGE SLOW IVP SCH (01:33)
[2018-06-09] MEDS ORDERED: Bicitra 30 ML UDCUP PO SCH (01:33)
[2018-06-09] MEDS ORDERED: Ondansetron PF 4 MG/2 ML Vial IVP PRN ×2 (01:33→08:22)
[2018-06-09] MEDS ORDERED: Insulin Glargine 20 UNITS in Pre-Filled Syringe 1 EACH SC SCH (01:33)
[2018-06-09 02:04] LABS: Amphetamine Not Detected (NotDetected); Barbiturates Screen Not Detected (NotDetected); Benzodiazepine Screen Not Detected (NotDetected); Cocaine Metabolite Screen Not Detected (NotDetected); Medtox Control Line Valid? VALID (VALID); Medtox Reader # READER 4; Methadone Not Detected (NotDetected); Methamphetamine Not Detected (NotDetected); Opiate Screen Not Detected (NotDetected); Oxycodone Screen Not Detected (NotDetected); Phencyclidine (PCP) Not Detected (NotDetected); THC/Cannabinoid Screen Not Detected (NotDetected); Tricyclic Screen Not Detected (NotDetected)
[2018-06-09 02:48] LABS: Hemoglobin 10.7 g/dL (12.0-16.0); Mean Corpuscular HGB CONC 32.5 g/dL (32.0-36.0); Mean Corpuscular Hemoglobin 29.1 pg (27.0-31.0); Mean Corpuscular Volume 89.4 fL (78.0-98.0); Mean Platelet Volume 7.4 fL (7.4-10.4); Platelet Count 357 thou/uL (130-400); RBC Distribution Width 12.5 % (11.5-14.5); Red Blood Cell (RBC) Count 3.69 mill/uL (4.20-5.40); White Blood Cell (WBC) Count 8.8 thou/uL (4.8-10.8)
[2018-06-09 03:26] LABS: HBSAg Index 0.19 S/CO (0-0.99); Hep B Surf Ag Non-Reactive S/CO (NonReactive)
[2018-06-09] MEDS: Albuterol Sulfate 1.25 MG/3 ML NEB NEB PRN ×2 (04:05→09:46)
[2018-06-09 04:43] LABS: Syphilis Antibody Nonreactive (Nonreactive); Syphilis Antibody Index 0.03 S/CO (<1.00 Non-Reactive)
[2018-06-09] MEDS ORDERED: CEFAZOLIN 2 GM/50 ML BAG ONE (06:57)
[2018-06-09] MEDS: Lactated Ringer's 1,000 ML IV SCH ×2 (06:59→13:43)
[2018-06-09] MEDS ORDERED: Morphine PF 1 MG/ML SYR ONE (07:22)
[2018-06-09] MEDS ORDERED: Ondansetron PF 4 MG/2 ML Vial ONE ×2 (07:22→15:48)
[2018-06-09] MEDS ORDERED: PHENYLEPHRINE-NS 100 MCG/ML 10 ML SYRINGE ONE (07:22)
[2018-06-09] MEDS ORDERED: Oxytocin 10 UNITS/ML VIAL ONE ×2 (07:22→08:39)
[2018-06-09] MEDS ORDERED: ePHEDrine/0.9% NaCl/PF SYRINGE 50 mg/10 ml ONE (07:25)
[2018-06-09] MEDS ORDERED: Lidocaine 1% PF 5 ML VIAL ONE (07:48)
[2018-06-09] MEDS ORDERED: PROPOFOL 20 ML ONE (08:04)
[2018-06-09] MEDS ORDERED: Succinylcholine Chloride 20 MG/ML 10 ml SYRINGE FS ONE ×2 (08:04→15:48)
[2018-06-09] MEDS ORDERED: diphenhydrAMINE 50 MG/ML VIAL IM PRN (08:22)
[2018-06-09] MEDS ORDERED: Ondansetron HCl/PF 4 MG/2 ML Vial IVP PRN (08:22)
[2018-06-09] MEDS ORDERED: Zolpidem Tartrate 5 MG TAB PO PRN (08:22)
[2018-06-09] MEDS ORDERED: diphenhydrAMINE 50 MG/ML VIAL IVP PRN (08:22)
[2018-06-09] MEDS ORDERED: HYDROmorphone 2 MG/ML VIAL SLOW IVP PRN (08:22)
[2018-06-09] MEDS ORDERED: Meperidine HCl/PF 25 MG/ML VIAL SLOW IVP PRN (08:22)
[2018-06-09] MEDS ORDERED: L&D-Morphine 4 MG/ML VIAL SLOW IVP PRN (08:22)
[2018-06-09] MEDS ORDERED: Naloxone HCl 0.4 mg/ml Vial IV PRN (08:22)
[2018-06-09] MEDS ORDERED: diphenhydrAMINE 25 MG CAP PO PRN (08:22)
[2018-06-09] MEDS ORDERED: Fentanyl 100 MCG/2 ML VIAL ONE ×2 (08:29→09:25)
[2018-06-09] MEDS ORDERED: Ketorolac Tromethamine 30 MG/ML VIAL IVP SCH ×2 (08:30→11:20)
[2018-06-09] MEDS ORDERED: Communication Order-Pharmacy FS SCH (08:30)
[2018-06-09] MEDS ORDERED: Methylergonovine 0.2 MG/ML VIAL ONE (08:38)
[2018-06-09 09:16] LABS: Actual Bicarbonate (HCO3a) 25.2 mEq/L (22-28); Base Excess (BEa) -3.3 mEq/L (-2.0 to +3.0)
[2018-06-09] MEDS ORDERED: Methylergonovine 0.2 MG/ML VIAL IM PRN ×2 (09:43→13:32)
[2018-06-09] MEDS ORDERED: Ketorolac Tromethamine 30 MG/ML VIAL ONE (09:55)
[2018-06-09] MEDS: fentaNYL Citrate/PF 2,000 MCG in Sodium Chloride 0.9% 60 ML IV PRN (10:18)
--- NOTE | 2018-06-09 10:38 | OP ---
DATE OF PROCEDURE: 06/09/2018 RESIDENT PRIMARY SURGEON: Daryl Ceron MD CERTIFICATION OFFICER SURGEON: Amada Daniel MD ATTENDING SURGEON: Trevor Ferreira MD PROCEDURE PERFORMED: Repeat low-transverse section. PREOPERATIVE DIAGNOSES: 1. Term intrauterine , 37.1 weeks. 2. Previous . 3. Poorly controlled A2 gestational diabetes mellitus. POSTOPERATIVE DIAGNOSES: 1. Term intrauterine , 37.1 weeks. 2. Previous . 3. Poorly controlled A2 gestational diabetes mellitus. ANESTHESIA: General, spinal anesthesia could not be obtained. INDICATIONS: This patient is a 33-year-old, G3, P1 female at 37.1 weeks, who presents for repeat scheduled section secondary to poorly-controlled A2 GDM at 37.1 weeks. DESCRIPTION OF PROCEDURE: After risks, benefits, and alternatives were explained to the patient, she gave informed consent. Preoperative antibiotics included cefazolin 2 g IV. The patient was taken to the operating room and spinal anesthesia was attempted, but could not be obtained, and so the patient ultimately went for general anesthesia. She was placed in supine position with a left tilt and prepped and draped in the usual sterile fashion. A Pfannenstiel incision was made with a scalpel and carried down to the level of fascia, which was sharply nicked. The fascial cut was extended bilaterally with Leger scissors. Inferior and superior edges of the cut fascial edges were elevated with Paras clamps and the underlying rectus muscles were sharply and bluntly dissected free. The recti were divided digitally and retracted manually after being entered bluntly with Leger scissors. The peritoneum was entered bluntly and retracted manually. Allis O ring was placed. Bladder was identified and was low, thus the bladder flap was not needed. A low-transverse score was made with a scalpel and the uterus was entered in the midline with the scalpel. Clear fluid was seen. The hysterotomy was extended manually. The was noted to be vertex and easily delivered by fundal pressure. Mouth and nares were bulb suctioned. Cord clamped and cut, grossly normal female handed to the waiting nurse. Cord blood and cord segment were obtained. Placenta was manually extracted and found to be intact with 3-vessel cord and sent for Pathology. The uterus was externalized and the endometrium was curetted with a dry lap. The hysterotomy was closed with a running 0 Monocryl suture followed by a running nonlocking 0 Vicryl imbricating suture. Following this, there was some oozing on the left side of the hysterotomy and this was covered with Surgicel. Following this, hemostasis was noted. The abdomen was inspected anterior and posterior uterus and found to be free from clots or bleeding. The uterus was internalized and the hysterotomy was again noted to be hemostatic. The peritoneum was closed with a running nonlocking 3-0 chromic suture. The fascia was closed with a running nonlocking 0 PDS suture. The subcutaneous tissue was irrigated and there were no bleeders. The subcu tissue was closed with 3-0 simple interrupted sutures of 3-0 chromic. The skin was approximated with leticia and pressure dressing was placed. All counts were correct. The patient tolerated the procedure well and was taken to the recovery room in stable condition. QUANTITATIVE BLOOD LOSS: Pending. COMPLICATIONS: None. SPECIMENS: Cord blood and cord gas sent for blood type, placenta sent for Pathology secondary to history of drug use. FINDINGS: Grossly normal female infant was taken to the NICU secondary to TTN. DRAINS: Otto to gravity draining clear urine. Job ID: [id number]
[2018-06-09 12:11] LABS: Hep C IgG Ab Non-Reactive (NonReactive); Hep C Index 0.04 S/CO (0-0.79)
--- NOTE | 2018-06-09 12:44 | PDOC.PP ---
Post Progress Note Post Day #: 0 Subjective: 4 hour post op note Patient states her pain is well controlled with SHORT ORDER FRY COOK pump as long as no one is trying to palpate her abdomen. She is requesting Ice chips. Denies light headedness. Nursing reports that she has had not much vaginal bleeding. PO intake tolerated: yes Flatus: no Ambulation: yes Vital Signs (12 hours) Pulse Resp Pulse Ox 06/09/18 09:46 85 24 H 92 L 06/09/18 04:05 16 96 06/09/18 02:44 98 Weight Weight 118.388 kg - Physical Examination General: NAD Cardiovascular: no m/r/g, RRR Respiratory: clear to auscultation bilaterally, non-labored breathing Abdominal: + bowel sounds, lochia, appropriately TTP Extremities: negative homans (B) Neurological: no gross focal deficits Psychiatric: A&Ox3, normal affect Result Diagrams: 06/10/18 06:08 Additional Labs: Post Labs Blood Type A POSITIVE 06/09/18 02:14 Hep Bs Antigen Non-Reactive S/CO (NonReactive) 06/09/18 02:14 (1) Status: Acute (2) History of section, low transverse Code(s): Z98.891 - HISTORY OF UTERINE SCAR FROM PREVIOUS SURGERY Status: Chronic - Assessment/Plan # PP day 0, rLTCS - monitor for vaginal bleeding - pain control: SHORT ORDER FRY COOK pump - advance diet as tolerated - CBC, PT/INR at 1600, AM # GDMA2 - fasting glucose in the AM # Hx of drug abuse -UDS negative - sent placenta for path Code: full Diet: advance as tolerated Fluids: LR 125ml/hr Dispo: 2 days Addendum - Attending - Attending Attestation Date/Time: 06/09/18 1346 I personally evaluated the patient and discussed the management with Dr. Ceron I agree with the History, Examination, Assessment and Plan documented above with any addition or exceptions noted below. 33 yo now female s/p RLTCS at 37.1 wks on 06/09/18 at 0818 POD#0 Patient doing well. Tolerating some liquids. Pain controlled. VS reviewed. No acute distress. Fundus firm at umbicus. Appropriately tender. 1. s/p RLTCS x2: Doing well. Continue routine care. 2. Uncontrolled A2 GDM on insulin: Required early term delivery due to concerns for fetus. Repeat fasting in AM. Will need screening at 6 wks pp. 3. Gestational Proteinuria: Concern during past hospital admission for preeclampsia. 24 hour protein 495. Mild range BP x3 throughout a several day stay. Initially with headache but improved. Currently monitoring BP at home. No mild or severe range BP. Normotensive today. No lab abnormalities. Appropriate growth. MFM following. Possible atypical presentation. Will monitor closely. 4. obesity: Risk for complcations. Consider wound vac for closure. If not ambulating well will start DVT ppx. 5. drug use during : CM/CPS to be consulted. Repeat UDS on admission. Denies any recent use. Monitor fetus. Continue postop care. Monitor closely. Lore
[2018-06-09] MEDS ORDERED: HYDROcodone/Acetaminophen 5/325 mg Tablet PO PRN (13:32)
[2018-06-09] MEDS ORDERED: CEFAZOLIN 2 GM in Sodium Chloride 0.9% 100 ML IVPB SCH (15:00)
[2018-06-09] MEDS: Ibuprofen 800 MG TAB PO SCH (15:06)
[2018-06-09] MEDS ORDERED: PROPOFOL 200 MG/20 ML VIAL ONE (15:48)
[2018-06-09 15:55] LABS: Hemoglobin 11.1 g/dL (12.0-16.0); Mean Corpuscular HGB CONC 32.7 g/dL (32.0-36.0); Mean Corpuscular Hemoglobin 29.7 pg (27.0-31.0); Mean Corpuscular Volume 90.7 fL (78.0-98.0); Mean Platelet Volume 7.2 fL (7.4-10.4); Platelet Count 323 thou/uL (130-400); RBC Distribution Width 12.8 % (11.5-14.5); Red Blood Cell (RBC) Count 3.73 mill/uL (4.20-5.40); White Blood Cell (WBC) Count 11.9 thou/uL (4.8-10.8)
[2018-06-09 16:03] LABS: Prothrombin Time 13.4 SEC (12.0-14.7)
[2018-06-09] MEDS ORDERED: Adacel (T-DAP) 0.5 ML SYRINGE IM ONE (17:00)
[2018-06-09] MEDS ORDERED: Eucerin (Mineral Oil/Petrolatum,White) 30 gm Jar TOP PRN (23:49)
[2018-06-10] MEDS ORDERED: Polyethylene Glycol 3350 17 GM Packet PO PRN (02:32)
[2018-06-10] MEDS: Ibuprofen 800 MG TAB PO SCH ×5 (02:45→21:28)
[2018-06-10] MEDS: Docusate Calcium (SURFAK) 240 MG CAP PO SCH ×3 (02:55→21:23)
[2018-06-10] MEDS: Ferrous Sulfate 325 MG TAB PO SCH ×3 (02:55→21:41)
[2018-06-10] MEDS: Lactated Ringer's 1,000 ML IV SCH ×2 (02:55→04:55)
[2018-06-10] MEDS: Simethicone Chewable 80 MG TAB PO PRN ×4 (03:01→21:28)
[2018-06-10] MEDS: fentaNYL Citrate/PF 2,000 MCG in Sodium Chloride 0.9% 60 ML IV PRN (05:43)
[2018-06-10 06:45] LABS: Hemoglobin 10.5 g/dL (12.0-16.0); Mean Corpuscular HGB CONC 33.1 g/dL (32.0-36.0); Mean Corpuscular Hemoglobin 30.2 pg (27.0-31.0); Mean Corpuscular Volume 91.3 fL (78.0-98.0); Mean Platelet Volume 7.5 fL (7.4-10.4); Platelet Count 368 thou/uL (130-400); RBC Distribution Width 12.8 % (11.5-14.5); Red Blood Cell (RBC) Count 3.49 mill/uL (4.20-5.40); White Blood Cell (WBC) Count 11.5 thou/uL (4.8-10.8)
--- NOTE | 2018-06-10 07:57 | PDOC.PP ---
Post Progress Note Post Day #: 1 Subjective: This morning patient states she is feeling well overall. She states she is using her RN PROVIDER RELATIONS pump less this morning. She has only used it once in the last 2 hours per her report. She states she is eating and drinking well but has not passed flatus as of yet. She has not had a bowel movement. She has minimal vaginal bleeding. She states she has mild pain at the incision site but feeling gassy is currently bothering her more. She has not been ambulating in the hallway as of yet although going to the restroom has been alright. PO intake tolerated: yes Flatus: no Ambulation: yes Vital Signs (12 hours) Temp Pulse Resp BP Pulse Ox 06/10/18 04:45 98.2 F 80 18 122/58 L 06/10/18 00:15 98.7 F 100 100 H 119/61 97 06/09/18 20:50 95 06/09/18 20:05 98.3 F 89 18 121/59 L 95 Weight Weight 118.388 kg - Physical Examination General: NAD Cardiovascular: no m/r/g, RRR Respiratory: clear to auscultation bilaterally, non-labored breathing Abdominal: + bowel sounds, lochia, appropriately TTP Fundus firm & at: 1 cm below umbilcus Extremities: negative homans (B) Skin: CS incision dry & intact, no rash Neurological: no gross focal deficits Psychiatric: A&Ox3, normal affect Result Diagrams: 06/10/18 06:08 Additional Labs: Post Labs Blood Type A POSITIVE 06/09/18 02:14 Hep Bs Antigen Non-Reactive S/CO (NonReactive) 06/09/18 02:14 (1) Status: Acute (2) History of section, low transverse Code(s): Z98.891 - HISTORY OF UTERINE SCAR FROM PREVIOUS SURGERY Status: Chronic - Assessment/Plan # PP day 1, rLTCS - pain control: RN PROVIDER RELATIONS pump, possible d/c later today - advance diet as tolerated - hgb 10.7 -> 11.1 -> 10.5 # GDMA2 - fasting glucose 109 # Hx of drug abuse -UDS negative - sent placenta for path Code: full Diet: regular Fluids: tko Dispo: 1 days Addendum - Attending - Attending Attestation Date/Time: 06/10/18 0855 I personally evaluated the patient and discussed the management with Dr. Ceron I agree with the History, Examination, Assessment and Plan documented above with any addition or exceptions noted below. 33 yo now female s/p RLTCS at 37.1 wks on 06/09/18 at 0818 POD#1 Doing well. Pain controlled. Ambulating in room. Voiding well. Tolerating PO. Lochia mild. VS reviewed. Labs reviewed. No acute distress. Fundus firm at umbicus. Appropriately tender. Incision clean and dry. No dehiscence noted. Leticia in place. No drainage. 1. s/p RLTCS x2: Doing well. Continue routine care. Would recommend keeping leticia in for > 4 days due to risk for complications. 2. Uncontrolled A2 GDM on insulin: Required early term delivery due to concerns for fetus. Fasting WNL. Will need screening at 6 wks pp. 3. Gestational Proteinuria: Repeat at 6 wk pp visit. [place] 4. obesity: Risk for complications. Not ambulating well. Will start ppx lovenox. 5. drug use during : CM/CPS to be consulted. Repeat UDS on admission negative. Denies any recent use. Monitor fetus. Continue postop care. Monitor closely. Lore
[2018-06-10] MEDS: Docusate 100 MG CAP PO SCH ×2 (09:00→21:28)
[2018-06-10] MEDS ORDERED: Enoxaparin Sodium 120 MG/0.8 ML SYRINGE SC SCH (10:45)
[2018-06-10] MEDS ORDERED: Acetaminophen/Codeine 30-300mg Tablet PO PRN (11:37)
[2018-06-10] MEDS: HYDROcodone/Acetaminophen 5/325 mg Tablet PO PRN ×3 (12:38→23:15)
[2018-06-10] MEDS ORDERED: Polyethylene Glycol 3350 17 GM Packet PO SCH (16:45)
[2018-06-11] MEDS: Simethicone Chewable 80 MG TAB PO PRN ×3 (04:11→16:00)
[2018-06-11] MEDS: Ibuprofen 800 MG TAB PO SCH ×3 (05:58→20:48)
[2018-06-11] MEDS: Ferrous Sulfate 325 MG TAB PO SCH ×2 (07:48→20:49)
--- NOTE | 2018-06-11 08:11 | PDOC.PP ---
Post Progress Note Post Day #: 2 Subjective: This morning patient states she is feeling well overall. She has been ambulating well, eating without difficulty, and pain is well controlled with PO meds. She states she still feels somewhat "gassy" and has been passing gas but no bowel movement as of yet. The simethicone has been helping. Less bleeding than a normal period. She is excited to have baby at the bedside. PO intake tolerated: yes Flatus: yes Ambulation: yes Vital Signs (12 hours) Temp Pulse Resp BP BP Pulse Ox 06/11/18 04:05 98.3 F 103 H 20 128/74 06/10/18 20:10 98.2 F 99 20 101/58 L 96 Weight Weight 118.388 kg - Physical Examination General: NAD Cardiovascular: no m/r/g, RRR Respiratory: clear to auscultation bilaterally, non-labored breathing Abdominal: + bowel sounds, appropriately TTP Fundus firm & at: 2cm below umbilicus Extremities: negative homans (B) Skin: CS incision dry & intact, no rash Neurological: no gross focal deficits Psychiatric: A&Ox3, normal affect Result Diagrams: 06/10/18 06:08 Additional Labs: Post Labs Blood Type A POSITIVE 06/09/18 02:14 Hep Bs Antigen Non-Reactive S/CO (NonReactive) 06/09/18 02:14 (1) Status: Acute (2) History of section, low transverse Code(s): Z98.891 - HISTORY OF UTERINE SCAR FROM PREVIOUS SURGERY Status: Chronic - Assessment/Plan # PP day 2, rLTCS - pain controlled with PO norco - hgb 10.7 -> 11.1 -> 10.5 - remove leticia in 1 week # GDMA2 - fasting glucose 109 x2 # Hx of drug abuse -UDS negative - sent placenta for path Code: full Diet: regular Fluids: tko Dispo: anticipate d/c this PM Addendum - Attending - Attending Attestation Date/Time: 06/11/18 0922 I personally evaluated the patient and discussed the management with Dr. Ceron I agree with the History, Examination, Assessment and Plan documented above with any addition or exceptions noted below. 33 yo now female s/p RLTCS at 37.1 wks on 06/09/18 at 0818 POD#2 Remains well. No complications overnight. Lochia minimal. +flatus. Not much ambulation -- encouraged frequently throughout the day. Voiding well. VS reviewed. Labs reviewed. No acute distress. Fundus firm below umbilicus. Appropriately tender. Incision clean and dry. No dehiscence noted. Leticia in place. No drainage. Nontender. 1. s/p RLTCS x2: Doing well. Continue routine care. Would recommend keeping leticia in for > 4 days due to risk for complications. 2. Uncontrolled A2 GDM on insulin: Required early term delivery due to concerns for fetus. Fasting WNL. No need to monitor accuchecks. Will need screening at 6 wks pp. 3. Gestational Proteinuria: Repeat at 6 wk pp visit. Monitor for risk of preE. 4. obesity: Risk for complications. Not ambulating well. Will start ppx lovenox. 5. drug use during : CM/CPS to be consulted. Repeat UDS on admission negative. Denies any recent use. Monitor fetus. Continue postop care. Monitor closely. Possible d/c later today or in AM. Lore
[2018-06-11] MEDS: Enoxaparin Sodium 120 MG/0.8 ML SYRINGE SC SCH (09:28)
[2018-06-11] MEDS: Docusate 100 MG CAP PO SCH ×2 (09:28→20:49)
[2018-06-11] MEDS: Docusate Calcium (SURFAK) 240 MG CAP PO SCH ×2 (09:28→20:48)
[2018-06-11] MEDS: HYDROcodone/Acetaminophen 5/325 mg Tablet PO PRN ×2 (10:55→15:59)
[2018-06-12] MEDS: HYDROcodone/Acetaminophen 5/325 mg Tablet PO PRN ×2 (00:53→08:15)
[2018-06-12] MEDS: Bisacodyl 10 MG SUPP PR PRN ×2 (00:54→09:39)
[2018-06-12] MEDS: Ibuprofen 800 MG TAB PO SCH (06:15)
[2018-06-12] MEDS: Simethicone Chewable 80 MG TAB PO PRN (06:19)
--- NOTE | 2018-06-12 06:44 | PDOC.PP ---
Post Progress Note Post Day #: 3 Subjective: This morning patient states she is feeling well, had a BM yesterday. Eating, ambulating well. States she only took 2 pain pills yesterday. Minimal vaginal bleeding. PO intake tolerated: yes Flatus: yes Ambulation: yes Vital Signs (12 hours) Temp Pulse Resp BP Pulse Ox 06/11/18 20:05 98.3 F 104 H 18 116/59 L 98 Weight Weight 118.388 kg - Physical Examination General: NAD Cardiovascular: no m/r/g, RRR Respiratory: clear to auscultation bilaterally, non-labored breathing Abdominal: + bowel sounds, lochia, appropriately TTP Extremities: negative homans (B) Skin: CS incision dry & intact, no rash Neurological: no gross focal deficits Psychiatric: A&Ox3, normal affect Result Diagrams: 06/10/18 06:08 Additional Labs: Post Labs Blood Type A POSITIVE 06/09/18 02:14 Hep Bs Antigen Non-Reactive S/CO (NonReactive) 06/09/18 02:14 (1) Status: Acute (2) History of section, low transverse Code(s): Z98.891 - HISTORY OF UTERINE SCAR FROM PREVIOUS SURGERY Status: Chronic - Assessment/Plan # PP day 3, rLTCS - pain controlled with PO norco - hgb 10.7 -> 11.1 -> 10.5 - remove leticia this AM # GDMA2 - fasting glucose 109 x2 - repeat 75g gtt in 4 weeks # Hx of drug abuse - UDS negative - sent placenta for path, no abnormalities Code: full Diet: regular Fluids: tko Dispo: anticipate d/c this PM Addendum - Attending - Attending Attestation Date/Time: 06/11/18 09 I personally evaluated the patient and discussed the management with Dr. Ceron I agree with the History, Examination, Assessment and Plan documented above with any addition or exceptions noted below. 33 yo now female s/p RLTCS at 37.1 wks on 06/09/18 at 0818 POD#3 No acute changes overnight. +Flatus/BM. Ambulating down the halls. Lochia minimal. Pain controlled. Incision healing well. VS reviewed. Labs reviewed. No acute distress. Fundus firm below umbilicus. Nontender. Incision clean and dry. No dehiscence noted. Leticia in place. No drainage. Nontender. 1. s/p RLTCS x2: Doing well. Ok to d/c to home today. Continue bowel reg at home. Would recommend keeping leticia in for > 4 days due to risk for complications. 2. Uncontrolled A2 GDM on insulin: Required early term delivery due to concerns for fetus. Fasting WNL. No need to monitor accuchecks. Will need screening at 6 wks pp. 3. Gestational Proteinuria: Repeat at 6 wk pp visit. Monitor for risk of preE. 4. obesity (BMI 45): Risk for complications. Encouraged continued ambulation and activity at home. 5. drug use during : CM following. Repeat UDS on admission negative. Denies any recent use. Continue postop care. Monitor closely. D/c later today. Lore
[2018-06-12 08:09] VITALS: BP 121/61; TEMP 98.3
[2018-06-12] MEDS: Ferrous Sulfate 325 MG TAB PO SCH (09:30)
[2018-06-12] MEDS: Docusate Calcium (SURFAK) 240 MG CAP PO SCH (09:31)
[2018-06-12] MEDS: Enoxaparin Sodium 120 MG/0.8 ML SYRINGE SC SCH (09:32)
[2018-06-12] MEDS: Docusate 100 MG CAP PO SCH (09:32)
--- NOTE | 2018-06-12 10:01 | PDOC.EVN ---
Event Note - Event Note Event Note: leticia removed steri-strips, mastizol placed patient tolerated procedure well minimal oozing on L side of incision, resolved w/ steristrips has followup appt at [facility] tomorrow and in 2 weeks
== END 2018-06-12 14:35 | disposition home or self-care (01) | DRG 788 ==
LOC: L&D 23:43 → 3SW 06-09 12:54
PROVIDERS: ADMIT Family Medicine; ATTEND Family Medicine
PROC: 10D00Z1 Extraction of Products of Conception, Low, Open Approach (ICD-10-PCS; principal; 2018-06-09)
DX: O24.424 Gestational diabetes mellitus in childbirth, insulin controlled (principal); O34.211 Maternal care for low transverse scar from previous cesarean delivery; O99.52 Diseases of the respiratory system complicating childbirth; O99.214 Obesity complicating childbirth; O12.14 Gestational proteinuria, complicating childbirth; J45.909 Unspecified asthma, uncomplicated; E66.9 Obesity, unspecified; O99.334 Smoking (tobacco) complicating childbirth; F17.210 Nicotine dependence, cigarettes, uncomplicated; Z79.4 Long term (current) use of insulin; Z79.899 Other long term (current) drug therapy; Z3A.36 36 weeks gestation of pregnancy; Z37.0 Single live birth
CPT/HCPCS: 36415; 36416; 51702; 80306; 82805; 85027; 85520; 85610; 86780; 86803; 86850; 86900; 86901; 87340; 88307; 90471; 90732; 94640; G0009; J0131; J0690; J1650; J1825; J1885; J2001; J2210; J2274; J2405; J2590; J2704; J3010; J7050

== ENCOUNTER 2018-06-14 23:53 | Emergency (ER) | payer OTHER ==
[2018-06-15 00:53] LABS: #Eosinphils 0.2 thou/uL (0.0-0.7); #Lymphocytes 2.3 thou/uL (1.20-3.40); #Monocytes 0.7 thou/uL (0.11-0.59); %Basophils 0.6 % (0.0-1.0); %Eosinophils 2.6 % (0.0-10.0); %Lymphocytes 27.6 % (21.0-51.0); %Monocytes 8.8 % (0.0-10.0); %Neutrophils 60.5 % (42.0-75.0); Mean Corpuscular HGB CONC 33.5 g/dL (32.0-36.0); Mean Corpuscular Hemoglobin 30.2 pg (27.0-31.0); Mean Corpuscular Volume 90.3 fL (78.0-98.0); Mean Platelet Volume 5.9 fL (7.4-10.4); Platelet Count 455 thou/uL (130-400); RBC Distribution Width 12.4 % (11.5-14.5); Red Blood Cell (RBC) Count 2.96 mill/uL (4.20-5.40); White Blood Cell (WBC) Count 8.2 thou/uL (4.8-10.8)
[2018-06-15] MEDS ORDERED: cefTRIAXone\\ROCEPHIN 2 GM VIAL ONE (00:55)
[2018-06-15] MEDS ORDERED: Morphine 4 MG/ML VIAL ONE (00:59)
[2018-06-15 01:15] LABS: ALT (SGPT) 45 U/L (8-55); AST (SGOT) 37 U/L (5-34); Albumin 3.5 g/dL (3.5-5.0); Alkaline Phosphatase 98 U/L (40-150); Anion Gap 14 mmol/L (10-20); BUN (Urea Nitrogen) 19 mg/dL (7.0-18.7); Bilirubin, Total 0.4 mg/dL (0.2-1.2); Calc. Creatinine Clearance 0 mL/min (70-130); Calcium 9.1 mg/dL (7.8-10.44); Carbon Dioxide 21 mmol/L (22-29); Chloride 108 mmol/L (98-107); Estimated GFR-MDRD Greater than 90; Globulin 3.3 g/dL (2.4-3.5); Glucose 94 mg/dL (70-105); Potassium 3.9 mmol/L (3.5-5.1); Protein, Total 6.8 g/dL (6.0-8.3); Sodium 139 mmol/L (136-145)
[2018-06-15 02:06] LABS: Bilirubin Negative (Negative); Blood, Urine Large (Negative); Clarity CLEAR (Clear); Glucose, Urine (Dipstick) Negative (Negative); Leukocyte Negative (Negative); Nitrite Negative (Negative); Protein, Urine (Dipstick) Negative (Neg-Trace); Specific Gravity, Urine 1.028 (1.002-1.036)
[2018-06-15 02:09] LABS: Bacteria/HPF Rare-Few HPF (None Seen); Hyaline Casts/LPF 0-3 HYALINE CAST LPF (0-3 Hyaline); Pathc Cast-AUWi Flag 0.58 (0-2.49); WBC/HPF 0-3 HPF (0-3)
[2018-06-15] MEDS ORDERED: metroNIDAZOLE 500 MG/100 ML BAG ONE (02:10)
[2018-06-15 02:12] LABS: Yeast-AUWi Flag 66.7 (0-25.0)
[2018-06-15 02:22] LABS: Yeast-All Forms None Seen HPF (None Seen)
[2018-06-15] MEDS ORDERED: ISOVUE-370 76%-LOCM 1 ML ONE (12:44)
--- NOTE | 2018-06-15 17:22 | CT ---
PRELIMINARY REPORT/[facility]/EMERGENTY AFTER-HOURS PROCEDURE CT Abdomen and Pelvis With Contrast EXAM DATE/TIME: 06/15/2018 1:41 AM CLINICAL HISTORY: 33 years old, female; Pain; Abdominal pain; Localized; Lower; Prior surgery; Surgery date: 3-7 days p ost-operative; Patient HX: Er 2; 33f presents for healing incision check, which is from saturday06/09/18 for a scheduled section. Patient reports her daughter was 37 weeks, denies fever/chills, says she is not . Currently reporting bleeding from vaginal since childbirth. TECHNIQUE: Axial computed tomography images of the abdomen and pelvis with intravenous contrast. Coronal reformatted images were created and reviewed. COMPARISON: No relevant prior studies available. FINDINGS: Lower thorax: No acute findings. ABDOMEN: Liver: No acute findings. No mass. Gallbladder and bile ducts: No calcified stones. No ductal dilation. Pancreas: No acute findings. No mass. No ductal dilation. Spleen: No acute findings. No mass. Adrenals: No acute findings. No mass. Kidneys and ureters: No acute findings. No mass. No hydronephrosis. Stomach and bowel: Fecal loading. Diverticulosis. No evidence of bowel obstruction. Appendix: No evidence of appendicitis. PELVIS: Bladder: The bladder is decompressed. Reproductive: Enlarged uterus. Scattered focal hyperdense/hyperenhancing areas within the uterus. Somewhat hyperdense nodular left intrapelvic densities. ABDOMEN and PELVIS: Intraperitoneal space: Mild pelvic fluid/hemorrhage. No free air. Bones/joints: No acute fracture. Soft tissues: Postsurgical changes, mild subcutaneous emphysema and mild midline ventral focal densities, edema/fluid. Vasculature: No acute findings. No abdominal aortic aneurysm. Lymph nodes: No significant lymphadenopathy. IMPRESSION: Enlarged uterus with scattered focal hyperdense/hyperenhancing areas which could relate to fibroids, although foci of hemorrhage not excluded. Postsurgical changes. Mild pelvic fluid/hemorrha ge. Other findings above. Thank you for allowing us to participate in the care of your patient. Dictated and Authenticated by: Celestino Carlisle MD 06/15/2018 3:13 AM Central Time ([place] & [place]) FINAL REPORT EMERGENT AFTER HOURS CT OF THE ABDOMEN AND PELVIS WITH CONTRAST: FINDINGS/IMPRESSION: I agree with the findings and impression given in the preliminary report per [facility] physician. There is an enlarged uterus secondary to the recent state. There are areas of hyperdensity with in the uterus. Although these could represent uterine fibroids, these could also represent areas of acute or ongoing bleeding. The largest measures 4.0 cm in greatest dimension. POS: [facility]
== END 2018-06-15 02:45 | disposition left against medical advice (07) ==
LOC: ERS 23:53
DX: O90.89 Other complications of the puerperium, not elsewhere classified (principal); R10.9 Unspecified abdominal pain; F41.9 Anxiety disorder, unspecified; J45.909 Unspecified asthma, uncomplicated; F17.210 Nicotine dependence, cigarettes, uncomplicated
CPT/HCPCS: 36415; 74177; 80053; 81003; 81015; 85025; 96365; 96367; J0696; J2270; Q9966

== ENCOUNTER 2019-10-10 22:44 | Emergency (ER) | payer OTHER ==
[2019-10-10] MEDS ORDERED: HYDROcodone/Acetaminophen 10/325 mg Tablet ONE (23:27)
== END 2019-10-10 23:43 | disposition home or self-care (01) ==
LOC: ERS 22:44
DX: K03.81 Cracked tooth (principal); K02.9 Dental caries, unspecified; J45.909 Unspecified asthma, uncomplicated; F41.9 Anxiety disorder, unspecified; F17.210 Nicotine dependence, cigarettes, uncomplicated
CPT/HCPCS: 99282

== ENCOUNTER 2021-02-16 00:21 | Emergency (ER) | payer OTHER ==
[2021-02-16 00:46] LABS: Hemoglobin 13.5 g/dL (12.0-16.0); Mean Corpuscular HGB CONC 33.9 g/dL (32.0-36.0); Mean Corpuscular Hemoglobin 30.5 pg (27.0-31.0); Mean Corpuscular Volume 89.8 fL (78.0-98.0); Mean Platelet Volume 6.6 fL (7.4-10.4); Platelet Count 320 thou/uL (130-400); RBC Distribution Width 12.2 % (11.5-14.5); Red Blood Cell (RBC) Count 4.45 mill/uL (4.20-5.40); White Blood Cell (WBC) Count 14.7 thou/uL (4.8-10.8)
[2021-02-16] MEDS ORDERED: Morphine 4 MG/ML VIAL ONE (00:56)
[2021-02-16] MEDS ORDERED: Ondansetron PF 4 MG/2 ML Vial ONE (00:56)
[2021-02-16 01:04] LABS: Band 3 % (5-11); Eosinophils 2 % (0-10); Lymphocytes 14 % (21-51); MDiff Complete? YES; Monocytes 3 % (0-10); Neutrophil 78 % (42-75)
[2021-02-16 01:07] LABS: ALT (SGPT) 13 U/L (8-55); AST (SGOT) 15 U/L (5-34); Albumin 3.8 g/dL (3.5-5.0); Alkaline Phosphatase 36 U/L (40-110); Anion Gap 10 mmol/L (10-20); BUN (Urea Nitrogen) 8 mg/dL (7.0-18.7); Bilirubin, Total 0.2 mg/dL (0.2-1.2); Calc. Creatinine Clearance 0 mL/min (70-130); Calcium 9.2 mg/dL (7.8-10.44); Carbon Dioxide 25 mmol/L (22-29); Chloride 104 mmol/L (98-107); Globulin 3.3 g/dL (2.4-3.5); Glucose 95 mg/dL (70-105); Lipase 39 U/L (8-78); Potassium 3.5 mmol/L (3.5-5.1); Protein, Total 7.1 g/dL (6.0-8.3); Sodium 135 mmol/L (136-145)
[2021-02-16 01:09] LABS: BHCG - Serum Negative (NEGATIVE); Pregs Control Background? CLEAR/WHITE (CLR/WHITE); Pregs Control Bar Appear? YES (CONTROL BAR)
[2021-02-16 03:54] LABS: Bilirubin Negative (Negative); Blood, Urine Trace (Negative); Clarity Turbid (Clear); Glucose, Urine (Dipstick) Normal (Negative); Ketone, Urine Negative (Negative); Leukocyte 25 Leu/uL (Negative); Nitrite Negative (Negative); Protein, Urine (Dipstick) 10 mg/dL (Neg-Trace); RBC/HPF 0-3 HPF (0-3); Specific Gravity, Urine 1.023 (1.002-1.036); Squamous Epithelial 21-50 HPF (0-3); Urobilinogen Normal mg/dL (Less than 2)
[2021-02-16 03:58] LABS: Bacteria/HPF 1+ HPF (None Seen)
[2021-02-16] MEDS ORDERED: Iopamidol 370 76% 100 ML VIAL ONE (15:50)
== END 2021-02-16 04:20 | disposition home or self-care (01) ==
LOC: ERS 00:21
DX: N39.0 Urinary tract infection, site not specified (principal); I10 Essential (primary) hypertension; F17.210 Nicotine dependence, cigarettes, uncomplicated
CPT/HCPCS: 36415; 74177; 80053; 81003; 81015; 83605; 83690; 84703; 85025; 87040; 87077; 87086; 87149; 87186; 96374; 96375; J2270; J2405

== ENCOUNTER 2021-02-17 01:19 | Emergency (ER) | payer OTHER ==
[2021-02-17] MEDS ORDERED: cefTRIAXone\\ROCEPHIN 2 GM VIAL ONE (02:11)
[2021-02-17 02:17] LABS: Hemoglobin 11.9 g/dL (12.0-16.0); Mean Corpuscular Hemoglobin 30.9 pg (27.0-31.0); Mean Corpuscular Volume 90.7 fL (78.0-98.0); Mean Platelet Volume 6.8 fL (7.4-10.4); Platelet Count 265 thou/uL (130-400); RBC Distribution Width 12.5 % (11.5-14.5); Red Blood Cell (RBC) Count 3.86 mill/uL (4.20-5.40); White Blood Cell (WBC) Count 20.3 thou/uL (4.8-10.8)
[2021-02-17 02:24] LABS: ALT (SGPT) 23 U/L (8-55); AST (SGOT) 24 U/L (5-34); Albumin 3.2 g/dL (3.5-5.0); Alkaline Phosphatase 46 U/L (40-110); Anion Gap 13 mmol/L (10-20); BUN (Urea Nitrogen) 11 mg/dL (7.0-18.7); Bilirubin, Total 0.2 mg/dL (0.2-1.2); Calc. Creatinine Clearance 0 mL/min (70-130); Calcium 8.3 mg/dL (7.8-10.44); Carbon Dioxide 22 mmol/L (22-29); Chloride 105 mmol/L (98-107); Globulin 2.8 g/dL (2.4-3.5); Glucose 102 mg/dL (70-105); Lipase 54 U/L (8-78); Potassium 3.6 mmol/L (3.5-5.1); Sodium 136 mmol/L (136-145)
[2021-02-17 02:31] LABS: Band 6 % (5-11); Eosinophils 3 % (0-10); Lymphocytes 10 % (21-51); MDiff Complete? YES; Monocytes 3 % (0-10); Neutrophil 77 % (42-75); Platelet Morphology Comment Appears Adequate; RBC Morphology Normal; Reactive Lymphocytes 1 % (0-10)
[2021-02-17 03:35] LABS: Bilirubin Negative (Negative); Blood, Urine 2+ (Negative); Clarity Turbid (Clear); Glucose, Urine (Dipstick) Normal (Negative); Ketone, Urine Trace mg/dL (Negative); Leukocyte 500 Leu/uL (Negative); Nitrite Negative (Negative); Protein, Urine (Dipstick) 30 mg/dL (Neg-Trace); Specific Gravity, Urine 1.024 (1.002-1.036); WBC/HPF Greater than 50 HPF (0-3)
[2021-02-17 03:56] LABS: Bacteria/HPF Rare-Few HPF (None Seen)
== END 2021-02-17 04:24 | disposition left against medical advice (07) ==
LOC: ERS 01:19
DX: A41.9 Sepsis, unspecified organism (principal); N12 Tubulo-interstitial nephritis, not specified as acute or chronic; J45.909 Unspecified asthma, uncomplicated; I10 Essential (primary) hypertension; F17.210 Nicotine dependence, cigarettes, uncomplicated
CPT/HCPCS: 36415; 80053; 81003; 83605; 83690; 85025; 87040; 87086; J0696

== ENCOUNTER 2021-02-17 18:01 | Inpatient (IN) | payer OTHER ==
[2021-02-17] MEDS ORDERED: cefTRIAXone\\ROCEPHIN 2 GM VIAL ONE (18:31)
[2021-02-17] MEDS ORDERED: Acetaminophen 500 MG TAB ONE (18:31)
[2021-02-17 18:44] LABS: Hemoglobin 12.4 g/dL (12.0-16.0); Mean Corpuscular HGB CONC 33.6 g/dL (32.0-36.0); Mean Corpuscular Hemoglobin 30.6 pg (27.0-31.0); Mean Corpuscular Volume 91.2 fL (78.0-98.0); Mean Platelet Volume 7.1 fL (7.4-10.4); Platelet Count 262 thou/uL (130-400); RBC Distribution Width 12.4 % (11.5-14.5); Red Blood Cell (RBC) Count 4.03 mill/uL (4.20-5.40); White Blood Cell (WBC) Count 13.8 thou/uL (4.8-10.8)
[2021-02-17 18:57] LABS: Band 8 % (5-11); Eosinophils 2 % (0-10); Lymphocytes 5 % (21-51); MDiff Complete? YES; Monocytes 5 % (0-10); Neutrophil 80 % (42-75); Platelet Morphology Comment Appears Adequate; RBC Morphology Normal
[2021-02-17 19:07] LABS: ALT (SGPT) 38 U/L (8-55); AST (SGOT) 32 U/L (5-34); Albumin 3.4 g/dL (3.5-5.0); Alkaline Phosphatase 54 U/L (40-110); Anion Gap 12 mmol/L (10-20); BUN (Urea Nitrogen) 7 mg/dL (7.0-18.7); Bilirubin, Total 0.3 mg/dL (0.2-1.2); Calc. Creatinine Clearance 0 mL/min (70-130); Calcium 8.5 mg/dL (7.8-10.44); Carbon Dioxide 23 mmol/L (22-29); Chloride 105 mmol/L (98-107); Globulin 2.8 g/dL (2.4-3.5); Glucose 76 mg/dL (70-105); Potassium 3.8 mmol/L (3.5-5.1); Protein, Total 6.2 g/dL (6.0-8.3); Sodium 136 mmol/L (136-145)
[2021-02-17] MEDS ORDERED: Vancomycin 1 GM/200 ML BAG ONE (19:35)
[2021-02-17] MEDS ORDERED: Ketorolac Tromethamine 30 MG/ML VIAL ONE (20:09)
[2021-02-17 20:30] LABS: Pregnancy Test - Urine (BHCG) Negative (Negative); Pregu Control Background? CLEAR/WHITE (CLR/WHITE); Pregu Control Bar Appear? YES (CONTROL BAR); Specific Gravity 1.023 (1.002-1.036)
[2021-02-17 20:33] LABS: Bilirubin Negative (Negative); Blood, Urine 1+ (Negative); Clarity Turbid (Clear); Glucose, Urine (Dipstick) Normal (Negative); Ketone, Urine Negative (Negative); Leukocyte 75 Leu/uL (Negative); Mucous/LPF 1+ LPF (<2+); Nitrite Negative (Negative); Protein, Urine (Dipstick) 30 mg/dL (Neg-Trace); Specific Gravity, Urine 1.023 (1.002-1.036); Urobilinogen Normal mg/dL (Less than 2)
[2021-02-17 20:47] LABS: Bacteria/HPF Rare-Few HPF (None Seen)
[2021-02-17] MEDS ORDERED: Calcium Carbonate 500 MG ChewTAB PO PRN (21:23)
[2021-02-17] MEDS ORDERED: Senokot S 8.6-50 MG TAB PO PRN (21:23)
[2021-02-17] MEDS ORDERED: Ondansetron PF 4 MG/2 ML Vial IVP PRN (21:23)
[2021-02-17] MEDS ORDERED: Ondansetron ODT 4 MG TAB PO PRN (21:23)
[2021-02-17] MEDS ORDERED: Acetaminophen 650 MG Suppository PR PRN (21:23)
[2021-02-17] MEDS ORDERED: Albuterol 200 PUFF (6.7GM INHALER) INH PRN (21:57)
[2021-02-17] MEDS: Cefepime 2 GM in Sodium Chloride 0.9% 100 ML IVPB SCH (23:31)
[2021-02-17] MEDS: Lactated Ringer's 1,000 ML IV SCH (23:31)
[2021-02-18] MEDS: Nicotine 7 MG PATCH TD SCH ×2 (01:33→23:09)
[2021-02-18 01:36] VITALS: BMI 36.6
[2021-02-18] MEDS: Acetaminophen 325 MG TAB PO PRN ×2 (02:49→20:10)
[2021-02-18] MEDS: Cefepime 2 GM in Sodium Chloride 0.9% 100 ML IVPB SCH (05:42)
[2021-02-18] MEDS: Lactated Ringer's 1,000 ML IV SCH ×3 (05:43→21:54)
[2021-02-18 06:56] LABS: Band 13 % (5-11); Hemoglobin 11.1 g/dL (12.0-16.0); Hypochromia SLIGHT = 6-15 cells (100X) (0-5/hpf); Lymphocytes 30 % (21-51); MDiff Complete? YES; Mean Corpuscular HGB CONC 33.3 g/dL (32.0-36.0); Mean Corpuscular Hemoglobin 30.1 pg (27.0-31.0); Mean Corpuscular Volume 90.2 fL (78.0-98.0); Mean Platelet Volume 7.4 fL (7.4-10.4); Neutrophil 56 % (42-75); Platelet Count 237 thou/uL (130-400); Platelet Morphology Comment Appears Adequate; RBC Distribution Width 12.3 % (11.5-14.5); Reactive Lymphocytes 1 % (0-10); Red Blood Cell (RBC) Count 3.69 mill/uL (4.20-5.40); White Blood Cell (WBC) Count 9.1 thou/uL (4.8-10.8)
[2021-02-18] MEDS: Mometasone 100 MCG/Formoterol 5 MCG 120 PUFF INHALER INH SCH ×2 (06:56→18:34)
[2021-02-18 07:08] LABS: ALT (SGPT) 87 U/L (8-55); AST (SGOT) 83 U/L (5-34); Albumin 2.9 g/dL (3.5-5.0); Alkaline Phosphatase 65 U/L (40-110); Anion Gap 11 mmol/L (10-20); BUN (Urea Nitrogen) 8 mg/dL (7.0-18.7); Bilirubin, Total 0.2 mg/dL (0.2-1.2); Calc. Creatinine Clearance 132 mL/min (70-130); Calcium 8.1 mg/dL (7.8-10.44); Carbon Dioxide 19 mmol/L (22-29); Chloride 109 mmol/L (98-107); Globulin 2.6 g/dL (2.4-3.5); Glucose 158 mg/dL (70-105); Potassium 3.4 mmol/L (3.5-5.1); Protein, Total 5.5 g/dL (6.0-8.3); Sodium 136 mmol/L (136-145)
[2021-02-18] MEDS ORDERED: Ibuprofen 600 MG TAB PO PRN (07:37)
[2021-02-18] MEDS ORDERED: Potassium Chloride 20 MEQ TAB PO SCH (07:45)
[2021-02-18] MEDS: Amlodipine 10 MG TAB PO SCH (09:04)
[2021-02-18] MEDS: Enoxaparin Sodium 40 MG/0.4 ML SYRINGE SC SCH (09:05)
[2021-02-18 16:49] LABS: SARS-CoV-2 PCR by NAA Not Detected (NotDetected)
[2021-02-18] MEDS: cefTRIAXone\\ROCEPHIN 2 GM in Sodium Chloride 0.9% 100 ML IVPB SCH (17:27)
[2021-02-18] MEDS: hydrOXYzine 25 MG TAB PO SCH (20:09)
[2021-02-19] MEDS: Lactated Ringer's 1,000 ML IV SCH ×3 (05:16→20:30)
[2021-02-19] MEDS: Mometasone 100 MCG/Formoterol 5 MCG 120 PUFF INHALER INH SCH ×2 (05:40→18:40)
[2021-02-19] MEDS: Amlodipine 10 MG TAB PO SCH (08:24)
[2021-02-19] MEDS: Acetaminophen 325 MG TAB PO PRN (08:32)
[2021-02-19] MEDS: Enoxaparin Sodium 40 MG/0.4 ML SYRINGE SC SCH (08:35)
[2021-02-19 08:39] LABS: #Basophils 0.1 thou/uL (0.0-0.2); #Eosinphils 0.2 thou/uL (0.0-0.7); #Lymphocytes 1.3 thou/uL (1.20-3.40); #Monocytes 0.6 thou/uL (0.11-0.59); #Neutrophils 3.5 thou/uL (1.40-6.50); %Basophils 1.4 % (0.0-1.0); %Eosinophils 3.6 % (0.0-10.0); %Lymphocytes 22.8 % (21.0-51.0); %Monocytes 10.8 % (0.0-10.0); %Neutrophils 61.5 % (42.0-75.0); Hemoglobin 11.6 g/dL (12.0-16.0); Mean Corpuscular HGB CONC 32.8 g/dL (32.0-36.0); Mean Corpuscular Hemoglobin 29.4 pg (27.0-31.0); Mean Corpuscular Volume 89.5 fL (78.0-98.0); Mean Platelet Volume 7.2 fL (7.4-10.4); Platelet Count 310 thou/uL (130-400); RBC Distribution Width 12.2 % (11.5-14.5); Red Blood Cell (RBC) Count 3.96 mill/uL (4.20-5.40); White Blood Cell (WBC) Count 5.7 thou/uL (4.8-10.8)
[2021-02-19 09:05] LABS: ALT (SGPT) 256 U/L (8-55); AST (SGOT) 188 U/L (5-34); Albumin 3.1 g/dL (3.5-5.0); Alkaline Phosphatase 86 U/L (40-110); Anion Gap 12 mmol/L (10-20); BUN (Urea Nitrogen) Less than 4 mg/dL (7.0-18.7); Bilirubin, Total 0.2 mg/dL (0.2-1.2); Calc. Creatinine Clearance 172 mL/min (70-130); Calcium 8.3 mg/dL (7.8-10.44); Carbon Dioxide 24 mmol/L (22-29); Chloride 106 mmol/L (98-107); Globulin 2.9 g/dL (2.4-3.5); Glucose 112 mg/dL (70-105); Potassium 3.7 mmol/L (3.5-5.1); Sodium 138 mmol/L (136-145)
[2021-02-19] MEDS: cefTRIAXone\\ROCEPHIN 2 GM in Sodium Chloride 0.9% 100 ML IVPB SCH (17:29)
[2021-02-19] MEDS: hydrOXYzine 25 MG TAB PO SCH (20:28)
[2021-02-19] MEDS: Nicotine 7 MG PATCH TD SCH (23:31)
[2021-02-20] MEDS: Lactated Ringer's 1,000 ML IV SCH (05:34)
[2021-02-20] MEDS: Mometasone 100 MCG/Formoterol 5 MCG 120 PUFF INHALER INH SCH (05:42)
[2021-02-20 06:45] LABS: #Eosinphils 0.3 thou/uL (0.0-0.7); #Lymphocytes 2.7 thou/uL (1.20-3.40); #Monocytes 0.9 thou/uL (0.11-0.59); #Neutrophils 3.9 thou/uL (1.40-6.50); %Basophils 0.5 % (0.0-1.0); %Eosinophils 4.4 % (0.0-10.0); %Lymphocytes 33.9 % (21.0-51.0); %Monocytes 11.6 % (0.0-10.0); %Neutrophils 49.6 % (42.0-75.0); Hemoglobin 11.8 g/dL (12.0-16.0); Mean Corpuscular Hemoglobin 29.4 pg (27.0-31.0); Mean Corpuscular Volume 89.2 fL (78.0-98.0); Mean Platelet Volume 7.2 fL (7.4-10.4); Platelet Count 349 thou/uL (130-400); RBC Distribution Width 12.2 % (11.5-14.5); Red Blood Cell (RBC) Count 4.01 mill/uL (4.20-5.40); White Blood Cell (WBC) Count 7.9 thou/uL (4.8-10.8)
[2021-02-20 07:13] LABS: ALT (SGPT) 240 U/L (8-55); AST (SGOT) 96 U/L (5-34); Albumin 3.1 g/dL (3.5-5.0); Alkaline Phosphatase 88 U/L (40-110); Anion Gap 15 mmol/L (10-20); BUN (Urea Nitrogen) 4 mg/dL (7.0-18.7); Bilirubin, Total Less than 0.2 mg/dL (0.2-1.2); Calc. Creatinine Clearance 159 mL/min (70-130); Calcium 8.6 mg/dL (7.8-10.44); Carbon Dioxide 23 mmol/L (22-29); Chloride 103 mmol/L (98-107); Glucose 135 mg/dL (70-105); Potassium 3.5 mmol/L (3.5-5.1); Protein, Total 6.1 g/dL (6.0-8.3); Sodium 137 mmol/L (136-145)
[2021-02-20] MEDS: Amlodipine 10 MG TAB PO SCH (07:44)
[2021-02-20] MEDS: Enoxaparin Sodium 40 MG/0.4 ML SYRINGE SC SCH (07:45)
[2021-02-20 08:05] VITALS: BP 133/86; TEMP 98.6
[2021-02-20] MEDS ORDERED: FLU VACC QS2021-22(6MOS UP)/PF 60 MCG/0.5 ML SYRINGE IM ONE (09:00)
[2021-02-20] MEDS ORDERED: Sulfameth/Trimethoprim DS 800-160mg TAB PO SCH ×2 (10:45→21:00)
== END 2021-02-20 14:22 | disposition home or self-care (01) | DRG 872 ==
LOC: ERS 18:01 → T4-B 20:13
PROVIDERS: ADMIT Family Medicine; ATTEND Family Medicine
DX: A41.51 Sepsis due to Escherichia coli [E. coli] (principal); N12 Tubulo-interstitial nephritis, not specified as acute or chronic; Z20.822 Contact with and (suspected) exposure to COVID-19; I10 Essential (primary) hypertension; F41.9 Anxiety disorder, unspecified; F17.210 Nicotine dependence, cigarettes, uncomplicated; J45.909 Unspecified asthma, uncomplicated; R74.01 Elevation of levels of liver transaminase levels; Z79.899 Other long term (current) drug therapy
CPT/HCPCS: 36415; 76705; 80053; 81003; 81015; 81025; 83605; 83690; 85025; 87040; 87086; 93005; 94760; 96374; J0692; J0696; J1650; J1885; J3370; J3490; J7120; U0003; U0005

== ENCOUNTER 2021-03-22 00:04 | Emergency (ER) | payer OTHER ==
[2021-03-22 01:36] LABS: Pregnancy Test - Urine (BHCG) Negative (Negative); Pregu Control Background? CLEAR/WHITE (CLR/WHITE); Pregu Control Bar Appear? YES (CONTROL BAR); Specific Gravity 1.024 (1.002-1.036)
[2021-03-22 01:37] LABS: Bacteria/HPF None Seen HPF (None Seen); Bilirubin Negative (Negative); Blood, Urine 1+ (Negative); Clarity Turbid (Clear); Glucose, Urine (Dipstick) Normal (Negative); Ketone, Urine Negative (Negative); Leukocyte 75 Leu/uL (Negative); Mucous/LPF Rare LPF (<2+); Nitrite Negative (Negative); Protein, Urine (Dipstick) 10 mg/dL (Neg-Trace); Specific Gravity, Urine 1.024 (1.002-1.036); Squamous Epithelial 21-50 HPF (0-3); Urobilinogen Normal mg/dL (Less than 2); pH, Urine 6.5 (5.0-9.0)
== END 2021-03-22 01:56 ==
LOC: ERS 00:04
DX: R10.9 Unspecified abdominal pain (principal); I10 Essential (primary) hypertension; J45.909 Unspecified asthma, uncomplicated; F17.210 Nicotine dependence, cigarettes, uncomplicated; Z79.899 Other long term (current) drug therapy
CPT/HCPCS: 81003; 81015; 81025; 99284

== ENCOUNTER 2021-09-17 01:26 | Emergency (ER) | payer OTHER ==
[2021-09-17] MEDS ORDERED: Ketorolac Tromethamine 30 MG/ML VIAL ONE (04:03)
[2021-09-17] MEDS ORDERED: Cyclobenzaprine 10 MG TAB ONE (05:10)
[2021-09-17 06:34] LABS: BHCG - Serum Negative (NEGATIVE); Pregs Control Background? CLEAR/WHITE (CLR/WHITE); Pregs Control Bar Appear? YES (CONTROL BAR)
== END 2021-09-17 07:41 | disposition home or self-care (01) ==
LOC: ERS 01:26
DX: M62.830 Muscle spasm of back (principal); I10 Essential (primary) hypertension; F17.210 Nicotine dependence, cigarettes, uncomplicated
CPT/HCPCS: 36415; 74176; 84703; 96372; J1885

== ENCOUNTER 2022-01-15 12:02 | Emergency (ER) | payer OTHER ==
[2022-01-15 12:36] LABS: #Eosinphils 0.2 thou/uL (0.0-0.7); #Lymphocytes 1.8 thou/uL (1.20-3.40); #Monocytes 0.8 thou/uL (0.11-0.59); #Neutrophils 7.1 thou/uL (1.40-6.50); %Basophils 0.3 % (0.0-1.0); %Eosinophils 1.7 % (0.0-10.0); %Lymphocytes 17.7 % (21.0-51.0); %Monocytes 8.3 % (0.0-10.0); %Neutrophils 71.9 % (42.0-75.0); Hemoglobin 12.9 g/dL (12.0-16.0); Mean Corpuscular HGB CONC 33.1 g/dL (32.0-36.0); Mean Corpuscular Hemoglobin 30.1 pg (27.0-31.0); Mean Platelet Volume 6.9 fL (7.4-10.4); Platelet Count 294 thou/uL (130-400); RBC Distribution Width 12.7 % (11.5-14.5); Red Blood Cell (RBC) Count 4.27 mill/uL (4.20-5.40); White Blood Cell (WBC) Count 9.9 thou/uL (4.8-10.8)
[2022-01-15 12:52] LABS: ALT (SGPT) 31 U/L (8-55); AST (SGOT) 24 U/L (5-34); Albumin 3.9 g/dL (3.5-5.0); Alkaline Phosphatase 45 U/L (40-110); Anion Gap 12 mmol/L (10-20); BUN (Urea Nitrogen) 9 mg/dL (7.0-18.7); Bilirubin, Total 0.6 mg/dL (0.2-1.2); CK (CPK) 118 U/L (29-168); Calc. Creatinine Clearance 0 mL/min (70-130); Calcium 9.3 mg/dL (7.8-10.44); Carbon Dioxide 22 mmol/L (22-29); Chloride 102 mmol/L (98-107); Estimated GFR 85; Globulin 3.9 g/dL (2.4-3.5); Glucose 87 mg/dL (70-105); Lipase 26 U/L (8-78); Potassium 3.7 mmol/L (3.5-5.1); Protein, Total 7.8 g/dL (6.0-8.3); Sodium 132 mmol/L (136-145)
[2022-01-15] MEDS ORDERED: Ketorolac Tromethamine 30 MG/ML VIAL ONE (14:11)
[2022-01-15 15:13] LABS: Bacteria/HPF 4+ HPF (None Seen); Bilirubin Negative (Negative); Blood, Urine 2+ (Negative); Clarity Turbid (Clear); Glucose, Urine (Dipstick) Normal (Negative); Ketone, Urine Negative (Negative); Leukocyte 500 Leu/uL (Negative); Nitrite 1+ (Negative); Protein, Urine (Dipstick) 50 mg/dL (Neg-Trace); Specific Gravity, Urine 1.019 (1.002-1.036); Urobilinogen Normal mg/dL (Less than 2); WBC/HPF Greater than 50 HPF (0-3); pH, Urine 6.5 (5.0-9.0)
[2022-01-15] MEDS ORDERED: cefTRIAXone\\ROCEPHIN 1 GM VIAL ONE (15:58)
[2022-01-15 16:05] LABS: Pregnancy Test - Urine (BHCG) Negative (Negative); Pregu Control Background? CLEAR/WHITE (CLR/WHITE); Pregu Control Bar Appear? YES (CONTROL BAR); Specific Gravity 1.019 (1.002-1.036)
== END 2022-01-15 16:39 | disposition home or self-care (01) ==
LOC: ERS 12:02
DX: N39.0 Urinary tract infection, site not specified (principal); I10 Essential (primary) hypertension; J45.909 Unspecified asthma, uncomplicated; F17.210 Nicotine dependence, cigarettes, uncomplicated
CPT/HCPCS: 36415; 71045; 80053; 81003; 81015; 81025; 82550; 83605; 83690; 84484; 85025; 87040; 93005; 94760; 96374; 96375; J0696; J1885

== ENCOUNTER 2022-03-31 23:58 | Emergency (ER) | payer OTHER | END 2022-04-01 01:56 | disposition left against medical advice (07) | LOC: ERS 23:58 | DX: Z53.21 Procedure and treatment not carried out due to patient leaving prior to being seen by health care provider (principal) ==

== ENCOUNTER 2022-05-12 11:20 | Emergency (ER) | payer OTHER ==
[2022-05-12 12:19] LABS: #Eosinphils 0.3 thou/uL (0.0-0.7); #Lymphocytes 2.1 thou/uL (1.20-3.40); #Monocytes 0.5 thou/uL (0.11-0.59); #Neutrophils 2.3 thou/uL (1.40-6.50); %Basophils 0.5 % (0.0-1.0); %Eosinophils 5.4 % (0.0-10.0); %Lymphocytes 39.8 % (21.0-51.0); %Monocytes 9.4 % (0.0-10.0); %Neutrophils 44.9 % (42.0-75.0); Hemoglobin 13.5 g/dL (12.0-16.0); Mean Corpuscular HGB CONC 33.9 g/dL (32.0-36.0); Mean Corpuscular Hemoglobin 30.7 pg (27.0-31.0); Mean Corpuscular Volume 90.6 fl (78.0-98.0); Mean Platelet Volume 7.8 fL (7.4-10.4); Platelet Count 322 10x3/uL (130-400); RBC Distribution Width 13.6 % (11.5-14.5); Red Blood Cell (RBC) Count 4.38 mill/uL (4.20-5.40); White Blood Cell (WBC) Count 5.2 10x3/uL (4.8-10.8)
[2022-05-12 12:40] LABS: ALT (SGPT) 9 U/L (8-55); AST (SGOT) 15 U/L (5-34); Albumin 4.1 g/dL (3.5-5.0); Alkaline Phosphatase 31 U/L (40-110); Anion Gap 10 mmol/L (10-20); BUN (Urea Nitrogen) 11 mg/dL (7.0-18.7); Bilirubin, Total 0.2 mg/dL (0.2-1.2); Calc. Creatinine Clearance 0 mL/min (70-130); Calcium 8.9 mg/dL (7.8-10.44); Carbon Dioxide 23 mmol/L (22-29); Chloride 107 mmol/L (98-107); Estimated GFR 91; Globulin 3.6 g/dL (2.4-3.5); Glucose 121 mg/dL (70-105); Potassium 3.9 mmol/L (3.5-5.1); Protein, Total 7.7 g/dL (6.0-8.3); Sodium 136 mmol/L (136-145)
[2022-05-12] MEDS ORDERED: HYDROcodone/Acetaminophen 5/325 mg Tablet ONE (12:45)
[2022-05-12 13:12] LABS: CK (CPK) 190 U/L (29-168); CRP (Inflammatory) Less than 0.50 mg/dL (= or < 0.5)
== END 2022-05-12 14:41 | disposition home or self-care (01) ==
LOC: ERS 11:20
DX: M79.642 Pain in left hand (principal); M79.641 Pain in right hand
CPT/HCPCS: 36415; 80053; 82550; 85025; 85652; 86140; 99283